=== PATIENT | male | born 1965 | race Caucasian/White ===

== ENCOUNTER → 2017-08-05 14:46 | Outpatient (CLI) | payer BC, SELFPAY ==
[2017-08-05 18:03] LABS: Anion Gap 14.5 mEq/L (5-15); Blood Urea Nitrogen 24 mg/dL (7-18); Carbon Dioxide 29 mmol/L (21.0-32.0); Chloride 102 mmol/L (98-107); Chol/HDL Ratio 3.6 (1-3.5); Cholesterol 160 mg/dL (140-200); Creatinine,Serum 1.18 mg/dL (0.70-1.30); Estimated Glomerular Filt Rate 65 ml/min (>60); GFR (African American) 78 ML/MIN (>60); Glucose 85 mg/dL (74-106); HDL Cholesterol 45 mg/dL (27-67); LDL Cholesterol 54 mg/dL (0-130); Potassium 4.5 mmoL/L (3.5-5.1); Sodium 141 mmol/L (136-145); Thyroid Stimulating Hormone 1.19 uIU/ml (0.358-3.740); Triglycerides 305 mg/dL (30-200); VLDL Cholesterol 61 mg/dL (0-40)
== END ==
PROVIDERS: Visit Provider Emergency Medicine
DX: E66.9 Obesity, unspecified (principal)
CPT/HCPCS: 80048; 80061; 84439; 84443

== ENCOUNTER 2019-01-08 01:58 | Observation (INO) ==
--- NOTE | 2019-01-08 02:16 | Emergency Department Note ---
ED Disposition Clinical Impression: Precordial chest pain Disposition: Admitted as Observation Condition on Discharge: Good - Critical Care Critical Care Time: No Attestation: On , the high probability of a clinically significant, sudden or life threatening deterioration of the following system(s) required my full and direct attention, intervention and personal management. The time I documented below is in addition to time spent performing reported procedures but includes the following listed in this critical care notation. Medical Decision Making - Alejandro Inquiry Pt receiving controlled substance: No Vital Signs: 01/08/19 02:12 01/08/19 02:30 01/08/19 02:35 Temperature 97.8 F Temperature Source Oral Pulse Rate [Right] 62 75 76 Respiratory Rate 20 20 20 Blood Pressure [Right Arm] 176/87 H 143/83 H 144/77 H Blood Pressure Mean [Right Arm] 116 103 99 Blood Pressure Source [Right Arm] Automatic Cuff Blood Pressure Position [Right Arm] Sitting 02 Sat by Pulse Oximetry 95 91 L 90 L Oxygen Delivery Method Room Air Room Air Room Air Oxygen Flow Rate (LPM) 01/08/19 03:00 Temperature Temperature Source Pulse Rate [Right] Respiratory Rate Blood Pressure [Right Arm] Blood Pressure Mean [Right Arm] Blood Pressure Source [Right Arm] Blood Pressure Position [Right Arm] 02 Sat by Pulse Oximetry 95 Oxygen Delivery Method Nasal Cannula Oxygen Flow Rate (LPM) 2 - Lab Data Lab Results 01/08/19 02:15: Sodium 139, Potassium 4.0, Chloride 103, Carbon Dioxide 26, Anion Gap 14.0, BUN 27 H, Creatinine 1.11, Estimated Creat Clear 69, Estimated GFR 69, Est GFR ( Amer) 84, Glucose 105, Calcium 9.3, Troponin I < 0.02 01/08/19 02:15: WBC 8.6, RBC 5.36, Hgb 16.7, Hct 50.2, MCV 93.6, MCH 31.2, MCHC 33.3, RDW 13.0, Plt Count 261, MPV 8.1, Neut % (Auto) 61.6, Lymph % (Auto) 26.0, G[place] % (Auto) 8.6, Eos % (Auto) 3.4, Baso % (Auto) 0.4, Neut # (Auto) 5.3, Lymph # (Auto) 2.3, Gaston # (Auto) 0.7, Eos # (Auto) 0.3, Baso # (Auto) 0.0 01/08/19 02:15: D-Dimer < 100 01/08/19 02:15: B-Natriuretic Peptide < 5 Result diagrams: 01/08/19 02:15 01/08/19 02:15 Orders (Tests/Meds): ED MEDICATIONS Generic Name Dose Route Start Last Admin Trade Name Freq PRN Reason Stop Dose Admin Nitroglycerin 0.4 mg 01/08/19 02:30 01/08/19 02:36 Nitrostat 0.4mg Sl Tablet SL 02/07/19 02:29 1 tab Q5MINP PRN Administration Chest Pain Pantoprazole Sodium 40 mg 01/08/19 09:00 Protonix 40mg Tablet PO 02/07/19 08:59 BID ELIEZER Discontinued Medications Generic Name Dose Route Start Last Admin Trade Name Freq PRN Reason Stop Dose Admin Aspirin 243 mg 01/08/19 02:29 01/08/19 02:15 Aspirin 81mg Chewable Tablet PO 01/08/19 02:30 243 mg ONCE ONE Administration ORDERS Category Date Time Status XR chest 2V Stat Exams 01/08/19 02:29 Taken - Radiology Data #1 Image(s): Chest Image Reviewed: Yes I reviewed the patient's radiology image Preliminary Findings: Normal/NAD poor inspiration - ECG Data Tracing #1 EKG interpreted by Juan Coles MD: Rhythm: sinus bradycardia Rate: 59 [place]: normal Ectopy: none Conduction: normal ST Segment Changes: none T Wave Changes: none Q Waves: none No evidence of acute ischemia or injury - Physician Consults Physician Consulted: Eleazar Time: 03:42 Reason -: Cardiology Eval/Care Comment/Response: Recommends admit for observation, stress test this morning. Start PPI. Additional Consult: Edward Time: 04:05 Reason -: Admission Comment/Response: Agrees to admit the patient to the hospital. We discussed the patient's clinical information, including history, exam, laboratory and radiology results and ED course. Per hospital procedure, I will write temporary bridge inpatient orders on the patient. Specific orders requested by the admitting physician: Per cardiology - Reevaluation(s) Time: 03:30 Reevaluation #1: Symptom-free after nitroglycerin Medical Decision Narrative: [facility] 2017: ANGIOGRAPHIC RESULTS: 1. The left main artery normal 2. The left anterior descending artery normal 3. The circumflex artery normal 4. The right coronary artery dominant normal 5. The PÉREZ ventriculogram reveals 65% 6. The left ventricular end-diastolic pressure moderate to severely elevated at 25 to 30 mmHg IMPRESSION: 1. Normal coronary arteries. 2. Normal ejection fraction 3. Moderate to severely elevated LVEDP consistent with diastolic dysfunction PLAN: 1. Risk factor modification 2. Patient needs significant diuresis as his symptoms likely stemming from diastolic heart failure 3. Sleep study <Electronically signed by Shon Bush MD in [place]> 02/21/17 1157 DORIE / PS AT 0940 AT 0956 Stress test 2017: FINDINGS: Ejection fraction is calculated to be 58% with normal wall motion Stress images reveal decreased activity in the apex and inferior wall. Rest images reveal slightly worsening activity in the inferior wall with slight improvement in the apex IMPRESSION: This is an abnormal stress test suggesting previous nontransmural myocardial infarction involving the apex with partial reversible ischemia as well as reverse redistribution in the inferior wall. <Electronically signed by Shon Bush MD in [place]> 02/15/17 1419 DORIE / PS AT 1024 AT 1415 ECHO 2017: CONCLUSION: 1. Normal left ventricular size, mild concentric left ventricular hypertrophy, visually estimated ejection fraction 55% with no obvious regional wall motion abnormality ,grade 1 diastolic dysfunction seen with borderline left atrial pressure by tissue Doppler. 2. Mild mitral and tricuspid regurgitation. 3. No significant pericardial effusion noted. <Electronically signed by NILSON HOUSTON MD in [place]> 08/25/16 1126 EMELYN / PS AT 0942 AT 1121 General Adult HPI - General Stated complaint: Back Pain;SOA Time Seen by Provider: 01/08/19 02:00 - History of Present Illness HPI narrative: States that while lying in bed about 1 AM he developed difficulty breathing, associated with heaviness in his chest, left shoulder and left arm discomfort. Denies diaphoresis or nausea. He has taken aspirin for tonight. States he has had this before, states he has had stress test and heart cath about a year ago. Says he has gotten this "every once in a great while" since then. also states that he has very poor exercise tolerance. He will even vomit if he exerts himself. He has hypertension and takes losartan/HCTZ. Non-smoker. Denies diabetes or hyperlipidemia. His primary care provider was Dr. Hernadez's office, but he says he will not go back there because he never gets to see the doctor, always sees a nurse practitioner, and was prescribed an antidepressant that caused him to gain 30 pounds of weight without being told that weight gain was a side effect. He stopped that medication a month ago. Family history positive for father who had emphysema and heart problems, but "he smoked like a [id number] Found! train". - Related Data Previous Rx's Medication Instructions Recorded losartan 100 1 tab PO QDAY #90 tab 10/16/18 mg-hydrochlorothiazide 25 mg tablet Allergies Allergy/AdvReac Type Severity Reaction Status Date / Time No Known Allergies Allergy Verified 10/16/18 15:05 [facility] History - Hepatitis A Screen Attestation statement:: This patient has been screened for Hepatitis A risk factors. I have reviewed the patient's past medical history: Yes Medical History: Reports:: Gastroesophageal Reflux Disease(GERD), Hypertension Denies:: Diabetes Mellitus Type 1, Diabetes Mellitus Type 2 Comment: depression Laterality Cases: Bilateral: Arthroscopy Knee Other Surgeries: Yes: Hernia Repair, Other Amputation: No Fractures: No - Social History Smoking Status: Never smoker Alcohol Intake: current Alcohol Intake Frequency:: holidays/special occasions only Substance Use Type: denies use Occupational Status: employed Housing: house Household Members: family Family Hx:: Coronary Artery Disease, Heart Attack ROS Obtained: Yes All systems reviewed & no additional complaints - Cardiovascular Cardiovascular: Reports chest pain, Denies diaphoresis - Respiratory Respiratory: Yes dyspnea - Gastrointestinal Gastrointestingal: Denies: abdominal pain, nausea, vomiting Physical Exam - General General appearance: alert - Head Head exam: atraumatic, normocephalic - Eye Eye exam: Present: normal appearance, EOMI - ENT ENT exam: Present: mucous membranes moist - Neck Neck exam: Present: normal inspection, trachea midline - Chest Chest inspection: Present: normal inspection, symmetric chest wall rise - Respiratory Respiratory exam: Present: normal lung sounds bilaterally. Absent: respiratory distress - Cardiovascular Cardiovascular exam: Present: regular rate, normal rhythm, normal heart sounds - Abdominal Exam Abdominal exam: Present: soft, normal bowel sounds. Absent: distention, tenderness - Extremities Exam Extremities exam: Present: normal inspection - Neurological Exam Neurological exam: Present: alert, oriented X3 - Psychiatric Psychiatric exam: Present: normal affect, normal mood - Skin Skin exam: Present: pallor
[2019-01-08 02:48] LABS: Blood Urea Nitrogen 27 mg/dL (7-18); Calcium 9.3 mg/dL (8.5-10.1); Carbon Dioxide 26 mmol/L (21.0-32.0); Chloride 103 mmol/L (98-107); Glucose 105 mg/dL (74-106); Sodium 139 mmol/L (136-145)
[2019-01-08 02:56] LABS: Basophils % 0.4 % (0.1-2.0); Eosinophils # 0.3 K/mm3 (0.0-0.4); Eosinophils % 3.4 % (0.1-12.0); Hematocrit 50.2 % (42.0-52.0); Hemoglobin 16.7 g/dL (14.1-18.0); Lymphocytes # 2.3 K/mm3 (0.7-4.5); Mean Corpuscular HGB Conc 33.3 g/dL (31.8-35.4); Mean Corpuscular Volume 93.6 fl (80-94); Mean Platelet Volume 8.1 fl (7.4-10.4); Monocytes # 0.7 K/mm3 (0.1-1.0); Monocytes % 8.6 % (1.7-9.3); Neutrophils # 5.3 K/mm3 (1.8-7.8); Neutrophils % 61.6 % (37.0-80.0); Platelet Count 261 K/mm3 (142-424); Red Blood Count 5.36 M/mm3 (4.60-6.20); White Blood Count 8.6 K/mm3 (4.8-10.8)
--- NOTE | 2019-01-08 07:35 | Pharmacy Consult Notes ---
[facility] Pharmacy VTE Monitoring - Patient Demographics Admission date: 01/08/19 Report Date: 01/08/19 Time: 07:35 Allergies/Adverse Reactions: Patient Allergies No Known Allergies Allergy (Verified 10/16/18 15:05) Height: 1.83 m Weight: 120.202 kg Patient Problems: Current Active Problems Precordial chest pain (Acute) - VTE Risk Labs: VTE Related Lab Results Hgb 16.7 g/dL (14.1-18.0) 01/08/19 02:15 Hct 50.2 % (42.0-52.0) 01/08/19 02:15 Plt Count 261 K/mm3 (142-424) 01/08/19 02:15 BUN 27 mg/dL (7-18) H 01/08/19 02:15 Creatinine 1.11 mg/dL (0.70-1.30) 01/08/19 02:15 Estimated Creat Clear 69 mL/min (50-200) 01/08/19 02:15 VTE Score: 6 VTE Risk Level: Moderate Risk - Prophylaxis VTE Prophylaxis Ordered?: Yes Types of VTE Prophylaxis: TEDS Knee High Location of Applied Device: Bilateral Lower Extremeties - VTE Diagnosis Confirmed Treatment or plan recommended: Continue Current Treatment
--- NOTE | 2019-01-08 08:25 | History & Physical Report ---
*Admission Date: 01/08/19 <Lilia Salazar - 01/08/19 08:25> *Chief complaint: Shortness of breath <SalazarAgathaLilia 01/08/19 08:25> *History of present illness: Mr. Williamson is a 53-year-old male with a history of hypertension and anxiety who presented to [facility] emergency room after awakening with severe shortness of breath. He states after awakening he sat on the side of the bed and it was not relieved. He denies specific chest pain but states he had left shoulder discomfort. He also denies having nausea, vomiting, palpitations, and diaphoresis. He states he has some leg edema at times. In the emergency room he received nitroglycerin x3+ Protonix after which his shortness of breath improved. Dr. Bush was contacted and recommended admission with a stress test. He is usually a patient of Dr. Hernadez'juan. After admission troponin has been normal x2. He states he has been sitting in a chair throughout the night after admission with no further chest or arm/shoulder pain. His breathing has returned to normal. Patient did have a cardiac cath in 2017 with normal coronary arteries and with severe elevation of left ventricular and diastolic pressure dictating diastolic dysfunction. Diuresis was recommended. He also relates that he has gained 30 pounds in the last several months and blames this on BuSpar which was prescribed for anxiety. He thus has not taken this for several weeks. He does not smoke but drinks 2-3 beers daily. <MarieLilia - 01/08/19 08:45> [facility] History Medical History: Reports:: Anxiety, Gastroesophageal Reflux Disease(GERD), Hypertension Denies:: Arrhythmia, BPH, Cancer, Coronary Artery Disease, Diabetes Mellitus Type 1, Diabetes Mellitus Type 2, Home Oxygen, Internal Pacemaker, Lung Disease, MRSA, Myocardial Infarction, Palpitations, Seizures <Lilia Salazar 01/08/19 08:39> *Have you ever received a pneumonia vaccine?: No <Lilia Salazar 01/08/19 08:25> *Have you received a flu vaccine this season?: Yes <Lilia Salazar 01/08/19 08:25> Other Medical History: Reports: Arthritis (Left ankle) <Lilia Salazar 01/08/19 08:39> Laterality Cases: Bilateral: Arthroscopy Knee <Lilia Salazar 01/08/19 08:25> Other Surgeries: Yes: Cardiac Catheterization, Hernia Repair, Other. No: Pacemaker <MarieLilia 01/08/19 08:25> Amputation: No <MarieLilia 01/08/19 08:25> Fractures: No <Lilia Salazar 01/08/19 08:25> - *Social History Educational Level: Completed High School <Salazar,Lilia 01/08/19 08:25> Smoking Status: Never smoker <MarieLilia 01/08/19 08:25> Alcohol Intake: current <MarieLilia 01/08/19 08:25> Alcohol Intake Frequency:: 3 or more drinks per day <Salazar,Lilia Cara 01/08/19 08:25> Substance Use Type: denies use <MarieLilia 01/08/19 08:25> *Occupational Status:: employed <SalazarLilia 01/08/19 08:25> Housing: house <MarieLilia 01/08/19 08:25> Household Members: family <MarieLilia 01/08/19 08:25> *Travel in the last 8 weeks: None <SalazarLilia 01/08/19 08:25> Family Hx:: Coronary Artery Disease, Heart Attack <SalazarLilia 01/08/19 08:25> Review of Systems - Constitutional Reports headache(s) <Salazar,Lilia 01/08/19 08:39> - Eyes Denies change in vision <Lilia Salazar 01/08/19 08:39> - ENT Reports headache(s), Reports nasal congestion, Reports sinus pain, Reports sinus pressure, Denies ear pain, Denies sore throat <Lilia Salazar 01/08/19 08:39> - *Cardiovascular Reports shortness of breath, Reports leg swelling, Reports shortness of breath when lying down, Denies chest pain, Denies excessive sweating, Denies irregular heart rhythm <Lilia Salazar 01/08/19 08:39> - *Respiratory Reports shortness of breath, Denies chest congestion, Denies cough, Denies coughing up blood <Lilia Salazar 01/08/19 08:39> - *Gastrointestinal Reports bloating, Reports constipation, Reports heartburn, Denies abdominal pain, Denies vomiting blood <Lilia Salazar - 01/08/19 08:39> - *Genitourinary Denies difficulty urinating <Lilia Salazar - 01/08/19 08:39> - *Musculoskeletal Reports joint pain, Denies abnormal walking <Lilia Salazar 01/08/19 08:39> - *Neurologic Reports headache(s), Denies seizure-like activity, Denies dizziness <Lilia Salazar - 01/08/19 08:39> Meds Home Medications Medication Instructions Recorded Confirmed Type losartan 100 1 tab PO QDAY #90 tab 10/16/18 01/08/19 Rx mg-hydrochlorothiazide 25 mg tablet Metoprolol Succinate 25 mg PO DAILY 30 Days #30 01/08/19 Rx tab.er.24h Nitroglycerin [Nitrostat 0.4mg SL 0.4 mg SL Q5MINP PRN 30 Days #30 01/08/19 Rx Tablet] tab.subl <EdwardYolanda - 01/08/19 10:35> Allergies Allergy/AdvReac Type Severity Reaction Status Date / Time No Known Allergies Allergy Verified 10/16/18 15:05 <Yolanda Leon - 01/08/19 10:35> Exam Vital signs and Labs for Last 24 Hours: Temp Pulse Resp BP Pulse Ox 99.0 F 69 18 147/78 H 99 01/08/19 08:00 01/08/19 08:00 01/08/19 08:00 01/08/19 08:00 01/08/19 08:00 Laboratory Results - last 24 hr 01/08/19 02:15: Sodium 139, Potassium 4.0, Chloride 103, Carbon Dioxide 26, Anion Gap 14.0, BUN 27 H, Creatinine 1.11, Estimated Creat Clear 69, Estimated GFR 69, Est GFR ( Amer) 84, Glucose 105, Calcium 9.3, Troponin I < 0.02 01/08/19 02:15: WBC 8.6, RBC 5.36, Hgb 16.7, Hct 50.2, MCV 93.6, MCH 31.2, MCHC 33.3, RDW 13.0, Plt Count 261, MPV 8.1, Neut % (Auto) 61.6, Lymph % (Auto) 26.0, Stewart % (Auto) 8.6, Eos % (Auto) 3.4, Baso % (Auto) 0.4, Neut # (Auto) 5.3, Lymph # (Auto) 2.3, Stewart # (Auto) 0.7, Eos # (Auto) 0.3, Baso # (Auto) 0.0 01/08/19 02:15: D-Dimer < 100 01/08/19 02:15: B-Natriuretic Peptide < 5 01/08/19 07:23: Troponin I < 0.02 <Yolanda Leon - 01/08/19 10:35> Temp Pulse Resp BP Pulse Ox 98.0 F 62 17 151/80 H 99 01/08/19 04:56 01/08/19 05:12 01/08/19 05:12 01/08/19 04:56 01/08/19 05:12 Laboratory Results - last 24 hr 01/08/19 02:15: Sodium 139, Potassium 4.0, Chloride 103, Carbon Dioxide 26, Anion Gap 14.0, BUN 27 H, Creatinine 1.11, Estimated Creat Clear 69, Estimated GFR 69, Est GFR ( Amer) 84, Glucose 105, Calcium 9.3, Troponin I < 0.02 01/08/19 02:15: WBC 8.6, RBC 5.36, Hgb 16.7, Hct 50.2, MCV 93.6, MCH 31.2, MCHC 33.3, RDW 13.0, Plt Count 261, MPV 8.1, Neut % (Auto) 61.6, Lymph % (Auto) 26.0, Stewart % (Auto) 8.6, Eos % (Auto) 3.4, Baso % (Auto) 0.4, Neut # (Auto) 5.3, Lymph # (Auto) 2.3, Stewart # (Auto) 0.7, Eos # (Auto) 0.3, Baso # (Auto) 0.0 01/08/19 02:15: D-Dimer < 100 01/08/19 02:15: B-Natriuretic Peptide < 5 01/08/19 07:23: Troponin I < 0.02 <Lilia Salazar - 01/08/19 08:25> I & O for Last 24 hours: Intake & Output 01/05/19 01/06/19 01/07/19 01/08/19 12:59 12:59 11:59 11:59 Intake Total 360 / 360 Balance 360 / 360 Weight 265 lb <Yolanda Leon - 01/08/19 10:35> Intake & Output 01/05/19 01/06/19 01/07/19 01/08/19 12:59 12:59 11:59 11:59 Weight 265 lb <Lilia Salazar - 01/08/19 08:25> Radiology Reports for the Last 24 Hours: 01/08/2019 chest x-ray IMPRESSION: No acute findings. <Salazar,Lilia Cara 01/08/19 08:39> - Constitutional no acute distress <Salazar,Lilia 01/08/19 08:39> Comments: Appears comfortable sitting in comfort chair at bedside. <Salazar,Lilia 01/08/19 08:39> - *Routine HEENT Exam Head: Present: normocephalic, atraumatic <MarieLilia 01/08/19 08:39> Eye: Present: PERRL. Absent: conjunctival icterus, scleral injection, conjunctivae pink <SalazarLilia 01/08/19 08:39> ENT: Present: mucous membranes moist, oropharynx clear <Salazar,Lilia 01/08/19 08:39> - *Routine Neck Exam Present: supple. Absent: carotid bruit, lymphadenopathy, thyromegaly <MarieLilia Cara 01/08/19 08:39> - *Routine Respiratory Exam Present: CTA bilaterally (Anteriorly and posteriorly) <SalazarLilia 01/08/19 08:39> - *Routine Cardiovascular Exam Present: RRR <SalazarLilia 01/08/19 08:39> - *Routine Abdominal Exam Present: soft, normoactive bowel sounds. Absent: tenderness, distended, guarding, organomegaly <MarieLilia - 01/08/19 08:39> - *Routine Extremities Exam Absent: edema, calf tenderness <MarieLilia - 01/08/19 08:39> - *Routine Neurological Exam Present: alert, oriented X3 <Lilia Salazar 01/08/19 08:39> Assessment and Plan (1) Diastolic dysfunction Current visit: Yes Status: Chronic Category: Medical Code(s): I51.89 - Other ill-defined heart diseases (2) Anxiety Current visit: Yes Status: Chronic Category: Medical Code(s): F41.9 - Anxiety disorder, unspecified (3) Weight gain Current visit: Yes Status: Acute Category: Medical Code(s): R63.5 - Abnormal weight gain (4) Alcohol use Current visit: Yes Status: Chronic Category: Social Hx Code(s): Z72.89 - Other problems related to lifestyle (5) Arthritis Current visit: Yes Status: Chronic Category: Medical Code(s): M19.90 - Unspecified osteoarthritis, unspecified site (6) Hypertensive heart disease Current visit: Yes Status: Chronic Category: Medical Code(s): I11.9 - Hypertensive heart disease without heart failure (7) Obesity Current visit: Yes Status: Chronic Category: Medical Code(s): E66.9 - Obesity, unspecified <Lilia Salazar - 01/08/19 08:41> (1) Diastolic dysfunction Current visit: Yes Status: Chronic Category: Medical Code(s): I51.89 - Other ill-defined heart diseases (2) Anxiety Current visit: Yes Status: Chronic Category: Medical Code(s): F41.9 - Anxiety disorder, unspecified (3) Weight gain Current visit: Yes Status: Acute Category: Medical Code(s): R63.5 - Abnormal weight gain (4) Alcohol use Current visit: Yes Status: Chronic Category: Social Hx Code(s): Z72.89 - Other problems related to lifestyle (5) Arthritis Current visit: Yes Status: Chronic Category: Medical Code(s): M19.90 - Unspecified osteoarthritis, unspecified site (6) Hypertensive heart disease Current visit: Yes Status: Chronic Category: Medical Code(s): I11.9 - Hypertensive heart disease without heart failure (7) Obesity Current visit: Yes Status: Chronic Category: Medical Code(s): E66.9 - Obesity, unspecified <Yolanda Leon - 01/08/19 10:35> - Assessment and plan all Dx Assessment and Plan for all problems:: d/c today per cardiology with appropriate recommended medications <Yolanda Leon - 01/08/19 10:35> Patient has been seen by cardiology and will receive low-dose of Lasix this a.m. We will continue with his losartan/hydrochlorothiazide. Patient does take some NSAID for his arthritis pain. He was cautioned to diminish this as well as his salt intake. Diet was discussed with the patient for reduced caloric intake. Recommended to decrease/stop pop and beer. <Lilia Salazar - 01/08/19 08:45>
--- NOTE | 2019-01-08 08:27 | Consult Report ---
History of Present Illness Consult date: 01/08/19 Consult reason: chest pain Chief complaint: chest pain, SOA Additional Medical History:: 1. HTN/HHD A. Echo, 08/2016,1. Normal left ventricular size, mild concentric left ventricular hypertrophy, visually estimated ejection fraction 55% with no obvious regional wall motion abnormality ,grade 1 diastolic dysfunction seen with borderline left atrial pressure by tissue Doppler. 2. Mild mitral and tricuspid regurgitation. 3. No significant pericardial effusion noted 2. Hyperlipidemia 3. obesity 4. Anxiety 5. Cardiac cath, 02/2017 A. 1. Normal coronary arteries. 2. Normal ejection fraction 3. Moderate to severely elevated LVEDP at 25-30 mm Hg consistent with diastolic dysfunction History of present illness: 53-year-old white male admitted for episode of chest discomfort and shortness of breath that woke him from sleep. Patient relates intermittent episodes approximately once a month over the last several months. Upon sitting up symptoms did improve but were still worrisome. Patient came to the ER for further evaluation. He was given a total of 3 nitroglycerin sublingual with improvement in symptoms but developed a headache. Patient relates drinking about 3 beers per day and apparently drank a pint of sangria along with eating a large portion of ham over the weekend. He does relate taking naproxen twice a day for left ankle discomfort. He has gained approximately 30 pounds or more over the last couple of months which she relates to anxiety medication. He discontinued the medication approximately 1 month ago. Patient underwent cardiac catheterization in February 2017 with normal coronary arteries and evidence of hypertensive heart disease with left ventricular end- diastolic pressure elevated at 25 to 30 mmHg. Patient was admitted with serial troponins returning at less than 0.022. EKG is sinus with no acute ST segment changes. Patient's chest x-ray was unremarkable with a BNP of less than 5. Cardiology consulted for evaluation recommendations. [facility] History Medical History: Reports:: Gastroesophageal Reflux Disease(GERD), Hypertension Denies:: Cancer, Diabetes Mellitus Type 1, Diabetes Mellitus Type 2, Home Oxygen, Internal Pacemaker, MRSA *Have you ever received a pneumonia vaccine?: No *Have you received a flu vaccine this season?: Yes Laterality Cases: Bilateral: Arthroscopy Knee Other Surgeries: Yes: Cardiac Catheterization, Hernia Repair, Other. No: Pacemaker Amputation: No Fractures: No - *Social History Educational Level: Completed High School Smoking Status: Never smoker Alcohol Intake: current Alcohol Intake Frequency:: 3 or more drinks per day Substance Use Type: denies use *Occupational Status:: employed Housing: house Household Members: family *Travel in the last 8 weeks: None Family Hx:: Coronary Artery Disease, Heart Attack Meds Home Medications Medication Instructions Recorded Confirmed Type losartan 100 1 tab PO QDAY #90 tab 10/16/18 01/08/19 Rx mg-hydrochlorothiazide 25 mg tablet Allergies Allergy/AdvReac Type Severity Reaction Status Date / Time No Known Allergies Allergy Verified 10/16/18 15:05 Review of Systems - Review of Systems Review of systems:: pertinent systems reviewed and negative unless documented below - *Cardiovascular Reports chest pain, Reports shortness of breath - *Respiratory Reports shortness of breath with activity - *Gastrointestinal Denies nausea, Denies vomiting - *Genitourinary Denies blood in urine - *Musculoskeletal Reports joint pain, Denies back pain - *Neurologic Denies dizziness, Denies fainting, Denies tingling Exam Vital signs and Labs for Last 24 Hours: Temp Pulse Resp BP Pulse Ox 98.0 F 62 17 151/80 H 99 01/08/19 04:56 01/08/19 05:12 01/08/19 05:12 01/08/19 04:56 01/08/19 05:12 Laboratory Results - last 24 hr 01/08/19 02:15: Sodium 139, Potassium 4.0, Chloride 103, Carbon Dioxide 26, Anion Gap 14.0, BUN 27 H, Creatinine 1.11, Estimated Creat Clear 69, Estimated GFR 69, Est GFR ( Amer) 84, Glucose 105, Calcium 9.3, Troponin I < 0.02 01/08/19 02:15: WBC 8.6, RBC 5.36, Hgb 16.7, Hct 50.2, MCV 93.6, MCH 31.2, MCHC 33.3, RDW 13.0, Plt Count 261, MPV 8.1, Neut % (Auto) 61.6, Lymph % (Auto) 26.0, [place] % (Auto) 8.6, Eos % (Auto) 3.4, Baso % (Auto) 0.4, Neut # (Auto) 5.3, Lymph # (Auto) 2.3, [place] # (Auto) 0.7, Eos # (Auto) 0.3, Baso # (Auto) 0.0 01/08/19 02:15: D-Dimer < 100 01/08/19 02:15: B-Natriuretic Peptide < 5 01/08/19 07:23: Troponin I < 0.02 I & O for Last 24 hours: Intake & Output 01/05/19 01/06/19 01/07/19 01/08/19 12:59 12:59 11:59 11:59 Weight 265 lb - *Routine HEENT Exam Head: Present: normocephalic Eye: Present: EOMI, PERRL ENT: Present: mucous membranes moist - *Routine Neck Exam Present: supple. Absent: JVD, carotid bruit - *Routine Respiratory Exam Present: CTA bilaterally. Absent: accessory muscle use, rales, rhonchi, wheezes - *Routine Cardiovascular Exam Present: RRR. Absent: murmur, gallop, rubs - *Routine Abdominal Exam Present: soft. Absent: tenderness, distended, guarding - *Routine Extremities Exam Present: edema. Absent: calf tenderness - *Routine Neurological Exam Present: alert, oriented X3, moving all extremities Assessment and Plan (1) Precordial chest pain Current visit: Yes Status: Acute Category: Medical Code(s): R07.2 - Precordial pain (2) Hypertensive heart disease Current visit: Yes Status: Acute Category: Medical Code(s): I11.9 - Hypertensive heart disease without heart failure (3) Obesity Current visit: Yes Status: Acute Category: Medical Code(s): E66.9 - Obesity, unspecified (4) Alcohol use Current visit: Yes Status: Acute Category: Social Hx Code(s): Z72.89 - Other problems related to lifestyle (5) Arthritis Current visit: Yes Status: Acute Category: Medical Code(s): M19.90 - Unspecified osteoarthritis, unspecified site - Assessment and plan all Dx Assessment and Plan for all problems:: 1. Precordial chest pain and shortness of breath felt related to exacerbation of his hypertensive heart disease due to increased salt intake and NSAID use. Discussed dietary changes as well as limiting his use of NSAIDs. In light of the patient's normal troponins, EKG and recent cardiac cath showed normal coronary arteries would not recommend any further testing at this time. 2. One-time dose of Lasix this a.m. due to his diastolic dysfunction and hypertensive heart disease. 3. Continue his losartan/HCTZ at 100/25 mg daily. 4. Recommend adding low-dose metoprolol succinate XL 25 mg daily for blood pressure control. 5. Okay for discharge from cardiology standpoint with follow-up in our office in 2 weeks.
--- NOTE | 2019-01-08 16:32 | Discharge Summary ---
General - General Admission date:: 01/08/19 Discharge date: 01/08/19 HPI HPI: Mr. Williamson is a 53-year-old male with a history of hypertension and anxiety who presented to [facility] emergency room after awakening with severe shortness of breath. He stated after awakening he sat on the side of the bed and it was not relieved. He denied specific chest pain but stated he had left shoulder discomfort. He also denied having nausea, vomiting, palpitations, and diaphoresis. He stated he had some leg edema at times. In the emergency room he received nitroglycerin x3+ Protonix after which his shortness of breath improved. Dr. Bush was contacted and recommended admission with a stress test. He was usually a patient of Dr. Hernadez's. After admission troponin was normal x2. He stated he had been sitting in a chair throughout the night after admission with no further chest or arm/shoulder pain. His breathing had returned to normal. Patient was noted to have had a cardiac cath in 2017 with normal coronary arteries and with severe elevation of left ventricular end diastolic pressure noting diastolic dysfunction. Diuresis was recommended. Patient also related that he had gained 30 pounds in the past several months and blamed this on new anxiety med, BuSpar. He thus had not been taking this for several weeks. He does not smoke but drinks 2-3 beers daily. Hospital Course Hospital Course: Patient was seen by cardiology with the following: Assessment and Plan for all problems:: 1. Precordial chest pain and shortness of breath felt related to exacerbation of his hypertensive heart disease due to increased salt intake and NSAID use. Discussed dietary changes as well as limiting his use of NSAIDs. In light of the patient's normal troponins, EKG and recent cardiac cath showing normal coronary arteries would not recommend any further testing at this time. 2. One-time dose of Lasix this a.m. due to his diastolic dysfunction and hyp ertensive heart disease. 3. Continue his losartan/HCTZ at 100/25 mg daily. 4. Recommend adding low-dose metoprolol succinate XL 25 mg daily for blood pressure control. 5. Okay for discharge from cardiology standpoint with follow-up in our office in 2 weeks. AM after admission patient denied chest pain and shortness of breath. He was able to eat without problems. He ambulated in the room without difficulty. He received 40 of Lasix and started on Metoprolol. He was discharged home. Discharged home in stable and satisfactory condition. He was to follow-up with Dr. Leon in the office of [facility] as well as with Dr. Bush, cardiology. Objective Vital signs: Temp Pulse Resp BP Pulse Ox 99.0 F 69 18 147/78 H 99 01/08/19 08:00 01/08/19 08:00 01/08/19 08:00 01/08/19 08:00 01/08/19 08:00 Narrative: Exam Vital signs and Labs for Last 24 Hours: Temp Pulse Resp BP Pulse Ox 99.0 F 69 18 147/78 H 99 01/08/19 08:00 01/08/19 08:00 01/08/19 08:00 01/08/19 08:00 01/08/19 08:00 Laboratory Results - last 24 hr 01/08/19 02:15: Sodium 139, Potassium 4.0, Chloride 103, Carbon Dioxide 26, Anion Gap 14.0, BUN 27 H, Creatinine 1.11, Estimated Creat Clear 69, Estimated GFR 69, Est GFR ( Amer) 84, Glucose 105, Calcium 9.3, Troponin I < 0.02 01/08/19 02:15: WBC 8.6, RBC 5.36, Hgb 16.7, Hct 50.2, MCV 93.6, MCH 31.2, MCHC 33.3, RDW 13.0, Plt Count 261, MPV 8.1, Neut % (Auto) 61.6, Lymph % (Auto) 26.0, [place] % (Auto) 8.6, Eos % (Auto) 3.4, Baso % (Auto) 0.4, Neut # (Auto) 5.3, Lymph # (Auto) 2.3, [place] # (Auto) 0.7, Eos # (Auto) 0.3, Baso # (Auto) 0.0 01/08/19 02:15: D-Dimer < 100 01/08/19 02:15: B-Natriuretic Peptide < 5 01/08/19 07:23: Troponin I < 0.02 <Yolanda Leon - 01/08/19 10:35> Temp Pulse Resp BP Pulse Ox 98.0 F 62 17 151/80 H 99 01/08/19 04:56 01/08/19 05:12 01/08/19 05:12 01/08/19 04:56 01/08/19 05:12 Laboratory Results - last 24 hr 01/08/19 02:15: Sodium 139, Potassium 4.0, Chloride 103, Carbon Dioxide 26, Anion Gap 14.0, BUN 27 H, Creatinine 1.11, Estimated Creat Clear 69, Estimated GFR 69, Est GFR ( Amer) 84, Glucose 105, Calcium 9.3, Troponin I < 0.02 01/08/19 02:15: WBC 8.6, RBC 5.36, Hgb 16.7, Hct 50.2, MCV 93.6, MCH 31.2, MCHC 33.3, RDW 13.0, Plt Count 261, MPV 8.1, Neut % (Auto) 61.6, Lymph % (Auto) 26.0, [place] % (Auto) 8.6, Eos % (Auto) 3.4, Baso % (Auto) 0.4, Neut # (Auto) 5.3, Lymph # (Auto) 2.3, [place] # (Auto) 0.7, Eos # (Auto) 0.3, Baso # (Auto) 0.0 01/08/19 02:15: D-Dimer < 100 01/08/19 02:15: B-Natriuretic Peptide < 5 01/08/19 07:23: Troponin I < 0.02 <Lilia Salazar - 01/08/19 08:25> I & O for Last 24 hours: Intake & Output 01/05/19 01/06/19 01/07/19 01/08/19 12:59 12:59 11:59 11:59 Intake Total 360 / 360 Balance 360 / 360 Weight 265 lb <Yolanda Leon - 01/08/19 10:35> Intake & Output 01/05/19 01/06/19 01/07/19 01/08/19 12:59 12:59 11:59 11:59 Weight 265 lb <Lilia Salazar - 01/08/19 08:25> Radiology Reports for the Last 24 Hours: 01/08/2019 chest x-ray IMPRESSION: No acute findings. <Lilia Salazar 01/08/19 08:39> - Constitutional no acute distress <Lilia Salazar 01/08/19 08:39> Comments: Appears comfortable sitting in comfort chair at bedside. <Lilia Salazar 01/08/19 08:39> - *Routine HEENT Exam Head: Present: normocephalic, atraumatic <Lilia Salazar 01/08/19 08:39> Eye: Present: PERRL. Absent: conjunctival icterus, scleral injection, conjunctivae pink [facility] 01/08/[facility] 08:39> ENT: Present: mucous membranes moist, oropharynx clear [facility] 01/08/19 08:39> - *Routine Neck Exam Present: supple. Absent: carotid bruit, lymphadenopathy, thyromegaly [facility] 01/08/19 08:39> - *Routine Respiratory Exam Present: CTA bilaterally (Anteriorly and posteriorly) <Lilia Salazar 01/08/19 08:39> - *Routine Cardiovascular Exam Present: RRR [facility] 08[facility]39> - *Routine Abdominal Exam Present: soft, normoactive bowel sounds. Absent: tenderness, distended, guarding, organomegaly <Lilia Salazar 01/08/19 08:39> - *Routine Extremities Exam Absent: edema, calf tenderness [facility] 01/08/19 08:39> - *Routine Neurological Exam Present: alert, oriented X3 [facility] 01/08/19 08:39> Results Labs on day of discharge: Labs from last 24 hours 01/08/19 01/08/19 01/08/19 10:10 07:23 02:15 WBC RBC Hgb Hct MCV MCH MCHC RDW Plt Count MPV Neut % (Auto) Lymph % (Auto) [place] % (Auto) Eos % (Auto) Baso % (Auto) Neut # (Auto) Lymph # (Auto) [place] # (Auto) Eos # (Auto) Baso # (Auto) D-Dimer Sodium Potassium Chloride Carbon Dioxide Anion Gap BUN Creatinine Estimated Creat Clear Estimated GFR Est GFR ( Amer) Glucose Calcium Troponin I < 0.02 < 0.02 B-Natriuretic Peptide < 5 01/08/19 01/08/19 01/08/19 02:15 02:15 02:15 WBC 8.6 RBC 5.36 Hgb 16.7 Hct 50.2 MCV 93.6 MCH 31.2 MCHC 33.3 RDW 13.0 Plt Count 261 MPV 8.1 Neut % (Auto) 61.6 Lymph % (Auto) 26.0 [place] % (Auto) 8.6 Eos % (Auto) 3.4 Baso % (Auto) 0.4 Neut # (Auto) 5.3 Lymph # (Auto) 2.3 [place] # (Auto) 0.7 Eos # (Auto) 0.3 Baso # (Auto) 0.0 D-Dimer < 100 Sodium 139 Potassium 4.0 Chloride 103 Carbon Dioxide 26 Anion Gap 14.0 BUN 27 H Creatinine 1.11 Estimated Creat Clear 69 Estimated GFR 69 Est GFR ( Amer) 84 Glucose 105 Calcium 9.3 Troponin I < 0.02 B-Natriuretic Peptide DS: Diagnosis - Discharge Diagnosis (1) Diastolic dysfunction Status: Chronic (2) Anxiety Status: Chronic (3) Weight gain Status: Acute (4) Alcohol use Status: Chronic (5) Arthritis Status: Chronic (6) Hypertensive heart disease Status: Chronic (7) Obesity Status: Chronic Discharge Plan - Patient Discharge Instructions ACTIVITY: Continue current activity DIET: cardiac Patient Instructions: Angina, DI for Angina, DI for Chest Pain - Follow up Plan Follow up with: Shon Bush MD [Staff Physician] - 01/23/19 1:20 pm Yolanda Leon MD [Staff Physician] - 01/17/19 9:15 am Unknown provider or service follow up:: 01/08/19 10:31 PCP in 1-2 days Disposition: Home, Self-Skilled Nursing Medications: Home Medications Medication Instructions Recorded Confirmed Type losartan 100 1 tab PO QDAY #90 tab 10/16/18 01/08/19 Rx mg-hydrochlorothiazide 25 mg tablet Metoprolol Succinate 25 mg PO DAILY 30 Days #30 01/08/19 Rx tab.er.24h Nitroglycerin [Nitrostat 0.4mg SL 0.4 mg SL Q5MINP PRN 30 Days #30 01/08/19 Rx Tablet] tab.subl Prescriptions/Medication Reconciliation: New Metoprolol Succinate 25 mg PO DAILY 30 Days #30 tab.er.24h Nitroglycerin [Nitrostat 0.4mg SL Tablet] 0.4 mg SL Q5MINP PRN 30 Days #30 tab.subl PRN Reason: Chest Pain Continued losartan 100 mg-hydrochlorothiazide 25 mg tablet 1 tab PO QDAY #90 tab - Problem Reconciliation Problems Reviewed?: Yes
--- NOTE | 2019-01-08 17:13 | Electrocardiograph Report ---
APPROVED REPORT Exam: Resting ECG HR:59 bpm ECG Measurements Heart Rate 59 AXES WY 176 P 25 QRSd 92 QRS 22 QT 400 T31 QTc 396 <Conclusion> Sinus bradycardia Otherwise normal ECG Electronically signed by : Francisco Javier Zhou, 01/08/2019 17:12:59
== END 2019-01-08 11:27 | disposition home or self-care (01) ==
LOC: 2ND 01:58 → ER 01:58 → 2ND 04:34
PROVIDERS: ADMIT Emergency Medicine; ATTEND Emergency Medicine
CPT/HCPCS: 36415; 71020; 71046; 80048; 83880; 84484; 85025; 85378; 93005; 99285; G0378

== ENCOUNTER 2019-12-31 07:28 | Emergency (ER) | payer BC, SELFPAY ==
[2019-12-31] VITALS (7 sets, daily range): BP systolic 146–179; BP diastolic 75–91; PULSE 55–62; RESP 14–18; TEMP 36.6–36.7; O2SAT 94–96; BMI 34.5
--- NOTE | 2019-12-31 07:33 | ECG_ITS ---
APPROVED REPORT Exam: Resting ECG HR:67 bpm ECG Measurements Heart Rate 67 AXES NM 170 P 25 QRSd 94 QRS 45 QT 396 T 36 QTc 418 Conclusion Sinus rhythm with premature atrial complexes Otherwise normal ECG Electronically signed by : Kunal Bryant, 01/04/2020 11:31:40
--- NOTE | 2019-12-31 07:39 | XR_ITS ---
PROCEDURE: XR CHEST 2V CLINICAL HISTORY: pain Chest pain, cough, COMPARISON: No exams were available for comparison FINDINGS: The cardiomediastinal silhouette and pulmonary vascularity are within normal limits. The lungs are clear without infiltrates, suspicious nodules, or pleural effusions. There are bilateral lower lobe nodular opacities noted which may be due to nipple shadows may be confirmed with nipple markers. Degenerative changes thoracic spine IMPRESSION: No acute finding. Probable nipple shadows Dictated by: Xavier Jimenez MD 12/31/2019 08:49 Xavier Jimenez MD in [place] 12/31/2019 08:49
--- NOTE | 2019-12-31 07:51 | PC.NURSE ---
Pt returned from rad.
[2019-12-31 07:54] LABS: Basophils % 0.5 % (0.1-2.0); Eosinophils # 0.3 K/mm3 (0.0-0.4); Eosinophils % 4.2 % (0.1-12.0); Hematocrit 41.9 % (42.0-52.0); Hemoglobin 15.4 g/dL (14.1-18.0); Lymphocytes # 1.7 K/mm3 (0.7-4.5); Lymphocytes % 23.8 % (10-50); Mean Corpuscular HGB Conc 36.8 g/dL (31.8-35.4); Mean Corpuscular Hemoglobin 33.9 pg (27.0-31.2); Mean Corpuscular Volume 92.3 fl (80-94); Mean Platelet Volume 8.2 fl (7.4-10.4); Monocytes # 0.5 K/mm3 (0.1-1.0); Monocytes % 6.3 % (1.7-9.3); Neutrophils # 4.8 K/mm3 (1.8-7.8); Neutrophils % 65.2 % (37.0-80.0); Platelet Count 211 K/mm3 (142-424); Red Blood Count 4.54 M/mm3 (4.60-6.20); Red Cell Distribution Width 14.3 % (11.5-17.5); White Blood Count 7.3 K/mm3 (4.8-10.8)
[2019-12-31 07:56] LABS: Chloride 101 mmol/L (98-107)
[2019-12-31 07:57] LABS: Potassium 3.9 mmoL/L (3.5-5.1); Sodium 138 mmol/L (136-145)
[2019-12-31 07:58] LABS: Lipase 56 U/L (23-300)
[2019-12-31 07:59] LABS: Alanine Aminotransferase 28 U/L (12-78); Alkaline Phosphatase 77 U/L (38-126); Amylase 74 U/L (30-110); Anion Gap 10.9 mEq/L (5-15); Aspartate Amino Transferase 36 U/L (17-59); Bilirubin,Total 0.5 mg/dl (0.2-1.3); Blood Urea Nitrogen 21 mg/dl (9-20); Carbon Dioxide 30 mmol/L (22.0-30.0); Creatinine Clearance Estimated 137 mL/min (50-200); Estimated Glomerular Filt Rate 78 ml/min (>60); GFR (African American) 94 ML/MIN (>60)
[2019-12-31 08:00] LABS: Albumin Level 4.5 g/dl (3.5-5.0); Albumin/Globulin Ratio 1.4 (1.1-1.8); Globulin 3.3 g/dL (1.3-3.2); Glucose 107 mg/dl (74-100); Total Protein,Serum 7.8 g/dl (6.3-8.2)
--- NOTE | 2019-12-31 08:04 | [facility].EDGENADL ---
ED Disposition Clinical Impression: Dyspnea Qualifiers: Dyspnea type: shortness of breath Qualified Code(s): R06.02 - Shortness of breath Disposition: Home, Self-Care Condition on Discharge: Good Instructions: DI for Shortness of Breath Additional Instructions: You were seen on an emergency basis. It is very important that you follow up with your primary care provider and/or specialist as we discussed within 2 days. All labs and imaging were obtained and interpreted here to rule out life threatening emergencies, but your final results should be reviewed by your primary doctor at your follow up appointment. Please return to the emergency department if any of your symptoms worsen, or if they do not improve as we discussed. Referrals: Dave Hernadez MD [Primary Care Provider] - - Critical Care Critical Care Time: No Attestation: On 12/31/19, the high probability of a clinically significant, sudden or life threatening deterioration of the following system(s) required my full and direct attention, intervention and personal management. The time I documented below is in addition to time spent performing reported procedures but includes the following listed in this critical care notation. Medical Decision Making - Medical Records Medical records reviewed: Yes: I reviewed the patient's medical records. - Alejandro Inquiry Pt receiving controlled substance: No Vital Signs: 12/31/19 07:34 12/31/19 07:56 12/31/19 08:30 Temperature 97.8 F Temperature Source Oral Pulse Rate [Radial] 55 L 59 L 61 Respiratory Rate 18 Blood Pressure [Right Arm] 163/85 H 146/80 H 160/89 H Blood Pressure Mean [Right Arm] 111 102 112 Blood Pressure Source [Right Arm] Automatic Cuff Automatic Cuff Automatic Cuff Blood Pressure Position [Right Arm] Sitting Sitting Sitting 02 Sat by Pulse Oximetry 94 L 95 95 Oxygen Delivery Method Room Air Room Air Room Air 12/31/19 08:57 12/31/19 09:40 Temperature Temperature Source Pulse Rate [Radial] 60 62 Respiratory Rate 14 Blood Pressure [Right Arm] 158/78 H 179/91 H Blood Pressure Mean [Right Arm] 104 120 Blood Pressure Source [Right Arm] Automatic Cuff Automatic Cuff Blood Pressure Position [Right Arm] Sitting Sitting 02 Sat by Pulse Oximetry 94 L 95 Oxygen Delivery Method Room Air Room Air - Lab Data Lab Results 12/31/19 07:40: WBC 7.3, RBC 4.54 L, Hgb 15.4, Hct 41.9 L, MCV 92.3, MCH 33.9 H, MCHC 36.8 H, RDW 14.3, Plt Count 211, MPV 8.2, Neut % (Auto) 65.2, Lymph % (Auto) 23.8, [place] % (Auto) 6.3, Eos % (Auto) 4.2, Baso % (Auto) 0.5, Neut # (Auto) 4.8, Lymph # (Auto) 1.7, [place] # (Auto) 0.5, Eos # (Auto) 0.3, Baso # (Auto) 0.0 12/31/19 07:40: Troponin I < 0.01 12/31/19 07:40: Sodium 138, Potassium 3.9, Chloride 101, Carbon Dioxide 30, Anion Gap 10.9, BUN 21 H, Creatinine 1.00, Estimated Creat Clear 137, Estimated GFR 78, Est GFR ( Amer) 94, Glucose 107 H, Calcium 10.0, Total Bilirubin 0.5, AST 36, ALT 28, Alkaline Phosphatase 77, NT-Pro-B Natriuret Pep 26.0, Total Protein 7.8, Albumin 4.5, Globulin 3.3 H, Albumin/Globulin Ratio 1.4, Amylase 74 12/31/19 07:40: Lipase 56 12/31/19 09:45: Troponin I < 0.01 Result diagrams: 12/31/19 07:40 12/31/19 07:40 Orders (Tests/Meds): ORDERS Category Date Time Status Troponin I Q3H Lab 12/31/19 13:45 Ordered Medical Decision Narrative: 54-year-old male presenting with shortness of breath. Nontoxic, afebrile, hemodynamically stable, oxygenating well on room air. Chest x-ray negative for acute disease. White blood cell count, glucose, electrolytes, transaminases are normal/nonactionable. Initial and repeat troponin are negative and flat. EKG is nonischemic and without arrhythmia. this is not ACS, pneumonia, pneumothorax. No clinical suspicion for PE General Adult HPI - General Chief complaint: Shortness of Breath/Dyspnea Stated complaint: Tightness in chest Time Seen by Provider: 12/31/19 08:04 Mode of Arrival: Ambula
[2019-12-31 08:29] LABS: Troponin I < 0.01 ng/ml (0.00-0.034)
--- NOTE | 2019-12-31 09:40 | PC.NURSE ---
2nd troponin sent to lab
[2019-12-31 10:09] LABS: Troponin I < 0.01 ng/ml (0.00-0.034)
== END 2019-12-31 10:50 | disposition home or self-care (01) ==
PROVIDERS: Physician Assistant; Emergency Provider Student in an Organized Health Care Education/Training Program; PCP Emergency Medicine
DX: R07.89 Other chest pain (principal); R50.9 Fever, unspecified; I10 Essential (primary) hypertension; K21.9 Gastro-esophageal reflux disease without esophagitis; F41.9 Anxiety disorder, unspecified
CPT/HCPCS: 71046; 80053; 82150; 83690; 83880; 84484; 85025; 93005; 99283

== ENCOUNTER → 2020-02-09 11:45 | Outpatient (CLI) | payer BC, SELFPAY ==
[2020-02-09 15:25] LABS: Coronavirus 19 IgG Antibody Negative (Negative); Coronavirus 19 IgM Antibody Negative (Negative)
== END ==
PROVIDERS: PCP Physician Assistant; Visit Provider Physician Assistant
DX: Z03.818 Encounter for observation for suspected exposure to other biological agents ruled out (principal)
CPT/HCPCS: 86328

== ENCOUNTER → 2022-04-13 16:29 | Outpatient (CLI) | payer BC, SELFPAY ==
--- NOTE | 2022-04-13 16:39 | XR_ITS ---
PROCEDURE INFORMATION: Exam: XR Left Knee Exam date and time: 04/13/2022 4:42 PM Age: 56 years old Clinical indication: Pain; Knee; Left; Prior surgery; Surgery date: 6+ months; Additional info: Knee pain TECHNIQUE: Imaging protocol: Radiologic exam of the Left knee. Views: 1 or 2 views. COMPARISON: No relevant prior studies available. FINDINGS: Bones/joints: Previous ACL repair. Tricompartmental joint space narrowing and osteophyte formation. Soft tissues: Prepatellar soft tissue swelling. IMPRESSION: No acute findings.
--- NOTE | 2022-04-13 16:39 | XR_ITS ---
PROCEDURE INFORMATION: Exam: XR Left Ankle Exam date and time: 04/13/2022 4:42 PM Age: 56 years old Clinical indication: Pain; Ankle; Left; Additional info: Left ankle pain TECHNIQUE: Imaging protocol: Radiologic exam of the Left ankle. Views: 1 or 2 views. COMPARISON: No relevant prior studies available. FINDINGS: Bones/joints: No acute fracture or dislocation. Calcaneal spurring. Soft tissues: Normal. IMPRESSION: No acute findings.
== END ==
LOC: RAD 16:31
PROVIDERS: PCP Nurse Practitioner Family; Visit Provider Nurse Practitioner Family
DX: M25.562 Pain in left knee (principal); M25.572 Pain in left ankle and joints of left foot
CPT/HCPCS: 73560; 73600

== ENCOUNTER → 2022-04-13 22:09 | Outpatient (CLI) | payer BC, SELFPAY ==
[2022-04-13 18:03] LABS: MANUAL DIFFERENTIAL MANUAL DIFFERENTIAL (MANUAL DIFF); Microscopic, Urine URINE MICROSCOPIC (MICROSCOPIC)
[2022-04-13 18:21] LABS: Basophils # 0.1 K/mm3 (0-0.2); Basophils % 0.7 % (0.1-2.0); Eosinophils # 0.2 K/mm3 (0.0-0.4); Eosinophils % 2.1 % (0.1-12.0); Hematocrit 51.6 % (42.0-52.0); Hemoglobin 17.2 g/dL (14.1-18.0); Lymphocytes # 2.5 K/mm3 (0.7-4.5); Lymphocytes % 22.7 % (10-50); Mean Corpuscular HGB Conc 33.4 g/dL (31.8-35.4); Mean Corpuscular Hemoglobin 29.8 pg (27.0-31.2); Mean Platelet Volume 8.6 fl (7.4-10.4); Monocytes # 0.7 K/mm3 (0.1-1.0); Monocytes % 6.9 % (1.7-9.3); Neutrophils # 7.3 K/mm3 (1.8-7.8); Neutrophils % 67.7 % (37.0-80.0); Platelet Count 275 K/mm3 (142-424); Red Blood Count 5.79 M/mm3 (4.60-6.20); Red Cell Distribution Width 13.5 % (11.5-17.5); White Blood Count 10.8 K/mm3 (4.8-10.8)
[2022-04-13 19:02] LABS: Eosinophils % 2 % (0-3); Lymphocytes % 24 % (10-50); Monocytes % 9 % (2-9); Neutrophils % 65 % (42-76); Platelet Estimate Normal; RBC Morphology Normal; Total Cells Counted 100
[2022-04-13 19:25] LABS: Erythrocyte Sedimentation Rate 3 mm/hr (0-20)
[2022-04-13 20:29] LABS: Hemoglobin A1C 5.4 % (4.0-6.0)
[2022-04-13 20:59] LABS: Appearance,Urine CLEAR (Clear); Bilirubin,Urine Negative (Negative); Blood, Urine Negative (Negative); Color,Urine YELLOW (Yellow); Glucose,Urine (UA) Negative (Negative); Ketones,Urine TRACE (Negative); Leukocyte Esterase,Urine Negative (Negative); Nitrate,Urine Negative (Negative); PH,Urine 5.5 (5.0-8.5); Protein,Urine Negative (Negative); Specific Gravity, Urine >= 1.030 (1.005-1.030); Urobilinogen,Urine 0.2 EU/dl (0.2)
[2022-04-13 21:35] LABS: Bacteria,Urine 1+ /lpf; Mucus,Urine 1+ /lpf
[2022-04-13 21:55] LABS: Alanine Aminotransferase 31 U/L (12-78); Albumin Level 4.7 g/dl (3.5-5.0); Albumin/Globulin Ratio 1.6 (1.1-1.8); Alkaline Phosphatase 99 U/L (38-126); Anion Gap 13.7 mEq/L (5-15); Aspartate Amino Transferase 33 U/L (17-59); Bilirubin,Total 0.7 mg/dl (0.2-1.3); Blood Urea Nitrogen 29 mg/dl (9-20); Calcium 9.5 mg/dl (8.4-10.2); Carbon Dioxide 28 mmol/L (22.0-30.0); Chloride 103 mmol/L (98-107); Cholesterol 176 mg/dl (140-200); Estimated Glomerular Filt Rate 87 ml/min (>60); GFR (African American) 105 ML/MIN (>60); Glucose 80 mg/dl (74-100); HDL Cholesterol 59 mg/dl (40-60); Potassium 3.7 mmoL/L (3.5-5.1); Sodium 141 mmol/L (136-145); Total Protein,Serum 7.7 g/dl (6.3-8.2); Triglycerides 193 mg/dl (30-150); VLDL Cholesterol 39 mg/dL (0-40)
[2022-04-13 22:06] LABS: C-Reactive Protein 2.1 mg/L (0-4); Direct LDL Cholesterol 49.84 mg/dL (100-129)
[2022-04-13 22:27] LABS: Prostate Specific Ag Screen 4.8 ng/ml (0.0-4.0); Thyroid Stimulating Hormone 1.73 uIU/mL (0.465-4.68)
== END ==
LOC: LAB 04-16 01:22 → LAB.DROPOF 04-21 08:20
PROVIDERS: PCP Nurse Practitioner Family; Visit Provider Nurse Practitioner Family
DX: Z00.00 Encounter for general adult medical examination without abnormal findings (principal); Z12.11 Encounter for screening for malignant neoplasm of colon; Z13.1 Encounter for screening for diabetes mellitus; Z13.220 Encounter for screening for lipoid disorders; E66.9 Obesity, unspecified; Z68.33 Body mass index [BMI] 33.0-33.9, adult; Z12.5 Encounter for screening for malignant neoplasm of prostate; Z76.89 Persons encountering health services in other specified circumstances
CPT/HCPCS: 80053; 80061; 81001; 83036; 84443; 85007; 85014; 85018; 85048; 85049; 85651; 86140; G0103

== ENCOUNTER → 2022-10-11 15:45 | Outpatient (CLI) | payer BC, SELFPAY ==
--- NOTE | 2022-10-11 15:45 | CT_ITS ---
FINAL REPORT TECHNIQUE: Thin section axial CT images of the facial bones and sinuses were obtained without contrast. Coronal reformatted images were also obtained.This study was performed with techniques to keep radiation doses as low as reasonably achievable, (ALARA). Individualized dose reduction techniques using automated exposure control or adjustment of mA and/or kV according to the patient''''s size were employed. CLINICAL HISTORY: sinusitis COMPARISON: None FINDINGS: There is mild mucosal thickening in the right maxillary sinus. There is total opacification of the left maxillary sinus with bony wall thickening consistent with a chronic sinusitis. No fluid levels are identified. There is abnormal soft tissue obstructing the maxillary sinus ostium and erosion of the uncinate process. Mucosal thickening and opacification extends into multiple anterior and middle ethmoid air cells and into the left nasal passage. A right kiarra bullosa is present with mild right septal deviation. The mastoid sinuses are hypoplastic. There is mild mucosal thickening of the left frontal sinus. No fracture or acute bony abnormality is identified. IMPRESSION: Chronic left maxillary sinusitis with total opacification, abnormal soft tissue obstructing the ostium, erosion of the uncinate process, and mucosal thickening/opacification of multiple left ethmoid air cells and the nasal passage. These findings are compatible with a chronic left maxillary sinusitis. There is a right kiarra bullosa and right septal deviation. There is mild mucosal thickening in the right maxillary and left frontal sinuses. Reviewed, Interpreted and Dictated by Po Bentley III, MD Transcribed by Amy Oneill Authenticated and [facility]
== END ==
LOC: RAD 15:45
PROVIDERS: PCP Nurse Practitioner Family; Visit Provider Nurse Practitioner
DX: J32.9 Chronic sinusitis, unspecified (principal)
CPT/HCPCS: 70486

== ENCOUNTER → 2022-11-05 15:44 | Outpatient (CLI) | payer BC, SELFPAY ==
[2022-11-05 15:50] LABS: MANUAL DIFFERENTIAL MANUAL DIFFERENTIAL (MANUAL DIFF)
[2022-11-05 16:32] LABS: Basophils % 0.3 % (0.1-2.0); Eosinophils # 0.3 K/mm3 (0.0-0.4); Eosinophils % 2.8 % (0.1-12.0); Hematocrit 51.1 % (42.0-52.0); Hemoglobin 16.6 g/dL (14.1-18.0); Lymphocytes # 2.2 K/mm3 (0.7-4.5); Lymphocytes % 22.1 % (10-50); Mean Corpuscular HGB Conc 32.5 g/dL (31.8-35.4); Mean Corpuscular Hemoglobin 30.2 pg (27.0-31.2); Mean Corpuscular Volume 92.9 fl (80-94); Mean Platelet Volume 8.2 fl (7.4-10.4); Monocytes # 0.7 K/mm3 (0.1-1.0); Monocytes % 6.9 % (1.7-9.3); Neutrophils # 6.6 K/mm3 (1.8-7.8); Neutrophils % 67.8 % (37.0-80.0); Platelet Count 260 K/mm3 (142-424); Red Cell Distribution Width 13.5 % (11.5-17.5); White Blood Count 9.7 K/mm3 (4.8-10.8)
[2022-11-05 17:02] LABS: Lymphocytes % 22 % (10-50); Monocytes % 6 % (2-9); Neutrophils % 72 % (42-76); Platelet Estimate Normal; RBC Morphology Normal; Total Cells Counted 100
[2022-11-05 17:43] LABS: Alanine Aminotransferase 27 U/L (12-78); Albumin Level 4.3 g/dl (3.5-5.0); Albumin/Globulin Ratio 1.4 (1.1-1.8); Alkaline Phosphatase 107 U/L (38-126); Anion Gap 15.8 mEq/L (5-15); Aspartate Amino Transferase 32 U/L (17-59); Bilirubin,Total 0.3 mg/dl (0.2-1.3); Blood Urea Nitrogen 31 mg/dl (9-20); Calcium 9.4 mg/dl (8.4-10.2); Carbon Dioxide 25 mmol/L (22.0-30.0); Chloride 106 mmol/L (98-107); Estimated Glomerular Filt Rate 87 ml/min (>60); GFR (African American) 105 ML/MIN (>60); Glucose 82 mg/dl (74-100); Potassium 3.8 mmoL/L (3.5-5.1); Sodium 143 mmol/L (136-145); Total Protein,Serum 7.3 g/dl (6.3-8.2)
== END ==
PROVIDERS: PCP Nurse Practitioner Family; Visit Provider Nurse Practitioner
DX: J32.9 Chronic sinusitis, unspecified (principal); J34.89 Other specified disorders of nose and nasal sinuses
CPT/HCPCS: 36415; 80053; 85007; 85014; 85018; 85048; 85049

== ENCOUNTER 2022-11-15 10:21 | Day surgery (SDC) | payer BC, SELFPAY ==
[2022-11-09 09:51] VITALS: BMI 30.7
[2022-11-15] VITALS (10 sets, daily range): BP systolic 151–165; BP diastolic 74–98; PULSE 54–65; RESP 14–18; TEMP 36.2–36.8; O2SAT 92–98
--- NOTE | 2022-11-15 13:02 | ECG_ITS ---
APPROVED REPORT Exam: Resting ECG HR:54 bpm ECG Measurements Heart Rate 54 AXES WY 183 P -3 QRSd 110 QRS 9 QT 422 T 22 QTc 409 Conclusion SINUS BRADYCARDIA WITH SINUS ARRHYTHMIA BORDERLINE ECG UNCONFIRMED REPORT Electronically signed by : Francisco Javier Zhou MD 11/16/2022 17:16:53
--- NOTE | 2022-11-15 13:08 | EXP.ANES.CKL ---
[facility] Disclaimer: The information contained in this section may have been updated after the patient was seen, as this information can be updated by other users. Medical History Alcohol use Anxiety Back contusion Back strain BMI 32.0-32.9,adult BMI 33.0-33.9,adult BMI 34.0-34.9,adult Bronchitis Radha bullosa Deviated nasal septum Dyspnea HTN (hypertension) Immunization due Left ACL tear repaired Sinusitis Viral syndrome Weight gain Surgical History H/O knee surgery History of tonsillectomy Family History Other Family history of hypertension Family history of myocardial infarction Social History (Updated 11/15/22 @ 10:56 by Hilda Santamaria RN) Smoking Status: Never smoker second hand exposure: No alcohol intake: current substance use type: marijuana current occupational status: employed Travel in the last 8 weeks: [place] the [place] household members: spouse housing: house 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 caffeine: Yes [facility] Anesthesia Checklist Patient Identification Patient Identification: Verbal (Name & ) Structural Data Admitted From: Home Planned Operative Procedure/s: fess Consent for Planned Operative Procedure(s) Verified: Yes NPO Status Verified Time NPO: 00:00 Additional verifications Anesthesia Reactions: No Hx Blood Transfusions: No Blood Transfusion Reaction: No Airway Assessment Mallampati Score:: Class II C-Spine Mobility Assessed: Yes TMJ Mobility Assessed: Yes Dentition: Good Dentition Neurological Assessment Level of Consciousness: Awake, Alert and Appropriate Anesthesia Plan Anesthesia Risk discussed: Yes Anesthesia Plan: Verified ASA Class: II Anesthesia Type: General
--- NOTE | 2022-11-15 13:24 | EXP.ANES.CKL ---
[facility] Disclaimer: The information contained in this section may have been updated after the patient was seen, as this information can be updated by other users. Medical History Alcohol use Anxiety Back contusion Back strain BMI 32.0-32.9,adult BMI 33.0-33.9,adult BMI 34.0-34.9,adult Bronchitis Radha bullosa Deviated nasal septum Dyspnea HTN (hypertension) Immunization due Left ACL tear repaired Sinusitis Viral syndrome Weight gain Surgical History H/O knee surgery History of tonsillectomy Family History Other Family history of hypertension Family history of myocardial infarction Social History (Updated 11/15/22 @ 10:56 by Hilda Santamaria RN) Smoking Status: Never smoker second hand exposure: No alcohol intake: current substance use type: marijuana current occupational status: employed Travel in the last 8 weeks: [place] the [place] household members: spouse housing: house 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 caffeine: Yes [facility] Anesthesia Checklist Patient Identification Patient Identification: Verbal (Name & ) Structural Data Admitted From: Home Planned Operative Procedure/s: excision tongue mass Consent for Planned Operative Procedure(s) Verified: Yes NPO Status Verified Time NPO: 00:00 Additional verifications Anesthesia Reactions: No Hx Blood Transfusions: No Blood Transfusion Reaction: No Airway Assessment Mallampati Score:: Class I C-Spine Mobility Assessed: Yes TMJ Mobility Assessed: Yes Dentition: Good Dentition Neurological Assessment Level of Consciousness: Awake, Alert and Appropriate Anesthesia Plan Anesthesia Risk discussed: Yes Anesthesia Plan: Verified ASA Class: II Anesthesia Type: General
--- NOTE | 2022-11-15 13:51 | P.OP_ITS ---
Date of procedure: 11/15/22 Pre-op Diagnosis:: Chronic sinusitis left greater than right Bilateral middle turbinate kiarra bullosa Post-op Diagnosis:: Same Procedure performed:: 1. Bilateral endoscopic middle meatal antrostomy with tissue removal 2. Left endoscopic ethmoidectomy?total 3. Left endoscopic reduction of kiarra bullosa of middle turbinate Surgeon:: Toni Dumont III, MD [employer] OPERATOR:: Roberto Carlos Lopez Anesthesia: GETA Estimated blood loss (mL): 75 Operative findings:: Extensive purulent discharge from the left ethmoid and maxillary sinuses along with extensive polypoid debris Operative note:: The patient was brought to the operating room placed under general endotracheal anesthesia. He was then placed in the lounge chair position topical Afrin and lidocaine was applied on cottonoids and placed bilaterally. After adequate time was allowed for vasoconstriction and these were removed further injection of 1% lidocaine with epinephrine was carried out along the lateral nasal torres bilaterally. I began endoscopic dissection on the right side. The uncinate process on the right was removed I used the microdebrider to take this down more thoroughly. Once this was done I then opened into the middle meatus this opening was opened widely using a backbiting down-biting instrument. Polypoid tissue was removed from the medial portion of the antrostomy. I then placed a nova pack on the right and infiltrated this with saline solution. Mupirocin ointment is then placed as a topical dressing as well. I removed the cottonoids from the left side of the nose. Further injection was carried out along the posterior nasal wall. I then used the microdebrider to remove the extensive polypoid tissue in the middle meatus and the anterior ethmoid sinuses. I extended the dissection posteriorly into the ethmoid sinuses until they were totally debrided, the lateral portion of the middle turbinate was removed as as it was polypoid in nature. Middle meatus was then opened widely there was some purulent discharge aspirated and this was sent for culture (bacterial and fungal). Recent polypoid tissue from the floor the maxillary sinus on the left this was sent for pathologic valuation. Once the opening was opened widely into the sinus. The procedure was terminated. I then placed a nova pack on the right followed by mupirocin ointment. I also used some Surgicel on the left side within the ethmoid sinus. The patient stomach contents were aspirated clear. He was then awakened in the operating room taken recovery room in good condition. Condition: stable Disposition: PACU Complications:: None
--- NOTE | 2022-11-15 13:58 | P.PNANES_ITS ---
[facility] Anesthesia Record Part I Anesthesia Record I Intake, IV Amount: 700 Hydration: Adequate Estimated blood loss (mL): 5 Urine output (mL): 0 Blood Products used (#): none Blood Pressure: 165/92 SaO2: 94 Pulse Rate: 63 Airway Patency: Patent Respiratory Rate: 16 Temperature: 97.2 F Patient is:: Drowsy and Stable Stable to PACU at:: 13:50
--- NOTE | 2022-11-15 16:29 | EXP.ANES.II ---
[facility] Anesthesia Record Part II Anesthesia Record Part II Discharge Time: 14:20 Destination: Surgical Day Care (OP Surgery) PACU nurse assessment reviewed?: Yes Patient Condition:: Good Anesthesia Complications:: None Swallowing reflex intact?: Yes Airway Patency: Patent Cyanosis?: No Blood Pressure: 155/79 SaO2: 92 Respiratory Rate: 16 Pulse Rate: 62 Temperature: 98 F Mental Status: Alert & Oriented Pain level:: 2 Nausea and/or vomitting:: None Intake, IV Amount: 0 Hydration: Adequate
== END 2022-11-15 15:00 | disposition home or self-care (01) ==
PROVIDERS: PCP Nurse Practitioner Family; Visit Provider Otolaryngology
PROC: (CPT 31255; principal; 2022-11-15 12:00)
DX: J32.9 Chronic sinusitis, unspecified (principal); J34.89 Other specified disorders of nose and nasal sinuses
CPT/HCPCS: 31255; 31267; 31240; 87102; 87206; 93005; 96374; J2405

== ENCOUNTER 2023-07-04 11:28 | Emergency (ER) | payer OTHER, SELFPAY ==
[2023-07-04] VITALS (7 sets, daily range): BP systolic 153–194; BP diastolic 84–103; PULSE 60–70; RESP 16–27; TEMP 36.8; O2SAT 95–97; BMI 32.5
--- NOTE | 2023-07-04 11:29 | ECG_ITS ---
APPROVED REPORT Exam: Resting ECG HR:69 bpm ECG Measurements Heart Rate 69 AXES MA 178 P 17 QRSd 93 QRS 20 QT 363 T 35 QTc 382 Conclusion SINUS RHYTHM NORMAL ECG Electronically signed by : DERIC CHUNG, 07/04/2023 15:28:22
--- NOTE | 2023-07-04 11:32 | PC.NURSE ---
Dr. Luo at [facility] for pt eval
--- NOTE | 2023-07-04 11:35 | XR_ITS ---
FINAL REPORT CLINICAL HISTORY: chest pain COMPARISON: 12/31/2019 FINDINGS: No acute pulmonary opacity is present. There is no evidence of effusion or pneumothorax. Mediastinum is unremarkable. Heart size is normal. IMPRESSION: No acute abnormality. No change from prior. Reviewed, Interpreted and Dictated by Estefany Saucedo MD Transcribed by Antonia Guadalupe Authenticated and [facility]
--- NOTE | 2023-07-04 11:36 | ED_ITS ---
Discharge Plan Disposition Patient Disposition: Home, Self-Care Chief Complaint: Chest Pain Prescriptions Prescriptions: No Action losartan-hydrochlorothiazide 100-25 mg tablet 1 tab PO DAILY metoprolol succinate 25 mg tablet extended release 24 hr 25 mg PO DAILY tetracycline 500 mg capsule 500 mg PO DAILY Rx Instructions: Open capsule and uses with nasal flush naproxen 500 mg tablet 500 mg PO DAILY Qty: 90 0RF Hold Instructions: Resume on 11/18/22. nitroglycerin 0.4 MG tablet, sublingual 0.4 mg SL Q5MINP PRN (Reason: Chest Pain) 30 Days Qty: 30 0RF aspirin 81 mg Capsule 81 mg PO DAILY Hold Instructions: Resume on 11/18/22. Referrals Follow up/Referrals: Provider,MD Kathleen [Referring] - See instructions Robson Rock MD [Staff Physician] - See instructions Activity Restrictions/Add. Instructions Additional Instructions/Restrictions: At this time it was felt you are safe to be discharged home. If new or worsening symptoms please do not hesitate to return the emergency department. Please call and schedule an appointment with cardiology as soon as you are able. Please restart your home blood pressure medication. Clinical Impressions Clinical Impression: Chest pain Discharge ED Provider: Barry Luo HPI General Chief Complaint: Chest Pain Stated Complaint: Chest pain Time Seen by Provider: 07/04/23 11:31 History of Present Illness HPI narrative: Patient is a 58-year-old male with past medical history of hypertension who presents emergency department for evaluation of chest pain and elevated blood pressure. 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 Patient's blood pressure was taken and systolic was greater than 240 upon EMS arrival. Patient was given aspirin, nitroglycerin. Patient has no ongoing chest pain upon arrival. When chest pain was happening it does not radiate to his back, he has no abdominal pain, no other acute complaints at this time. With respect to his blood pressure medication patient was prescribed losartan which he has self discontinued approximately 2 months ago. Related Data Home Medications Medication Instructions Recorded Confirmed aspirin 81 mg capsule [address] [facility] 11/15/22 04/11/23 losartan 100 1 tab PO DAILY 03/31/23 04/11/23 mg-hydrochlorothiazide 25 mg tablet metoprolol succinate 25 mg 25 mg PO DAILY 03/31/23 04/11/23 tablet,extended release 24 hr tetracycline 500 mg capsule 500 mg PO DAILY 03/31/23 04/11/23 Previous Rx's Medication Instructions Recorded nitroglycerin 0.4 mg sublingual 0.4 mg sublingual Q5MINP PRN Chest 01/08/19 tablet Pain 30 days ##30 naproxen 500 mg tablet 500 mg PO DAILY pain #90 tabs 04/29/23 Allergies Allergy/AdvReac Type Severity Reaction Status Date / Time No Known Allergies Allergy Verified 04/11/23 10:17 [facility] Disclaimer: The information contained in this section may have been updated after the patient was seen, as this information can be updated by other users. Medical History (Updated 07/04/23 @ 15:07 by Barry Luo MD) Chest pain Deviated nasal septum Radha bullosa BMI 34.0-34.9,adult Left ACL tear BMI 33.0-33.9,adult BMI 32.0-32.9,adult HTN (hypertension) Dyspnea Weight gain Anxiety Alcohol use Sinusitis Bronchitis Viral syndrome Immunization due Back strain Back contusion Surgical History Status post nasal septoplasty History of tonsillectomy H/O knee surgery Family History Other Family history of hypertension Family history of myocardial infarction Social History Smoking Status: Never smoker second hand exposure: No alcohol intake: current alcohol intake frequency: 0-2 drinks per day substance use type: marijuana current occupational status: employed Travel in the last 8 weeks: [place] the [place] household members: spouse housing: house 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 caffeine: Yes ROS Obtained: Yes Systems reviewed as appropriate & no additional complaints except as documented Physical Exam General General appearance: alert and in no apparent distress Head Head exam: atraumatic and normocephalic Eye Eye exam: Present PERRL ENT ENT exam: Present mucous membranes moist Neck Neck exam: Present normal inspection Chest Chest inspection: Present normal inspection and symmetric chest wall rise Respiratory Respiratory exam: Present normal lung sounds bilaterally; Absent respiratory distress Cardiovascular Cardiovascular exam: Present regular rate and normal rhythm Abdominal Exam Abdominal exam: Present soft; Absent tenderness Extremities Exam Extremities exam: Present normal inspection Neurological Exam Neurological exam: Present alert Psychiatric Psychiatric exam: Present normal affect Skin Skin exam: Present warm and dry HEART Score HEART Score HEART Score assessment performed?: Yes History (anamnesis): Highly suspicious ECG: Normal Age: 45-65 years Risk factors: 1-2 risk factors Troponin: </= normal limit HEART Score: 4 Critical Care Critical Care Time Critical Care Time: No Medical Decision Making Alejandro Inquiry Pt receiving controlled substance: No Vital Signs Vital Signs: 07/04/23 11:28 07/04/23 12:34 07/04/23 13:00 Temperature 98.3 F Temperature Source Oral Pulse Rate 63 60 Pulse Rate [Radial] 67 Respiratory Rate 18 26 H 27 H Blood Pressure 177/100 H 194/103 H Blood Pressure [Right Arm] 163/94 H Blood Pressure Mean [Right Arm] 117 Blood Pressure Source [Right Arm] Automatic Cuff Blood Pressure Position [Right Arm] Sitting 02 Sat by Pulse Oximetry 96 97 96 Oxygen Delivery Method Room Air Room Air Room Air 07/04/23 14:00 07/04/23 14:30 Temperature Temperature Source Pulse Rate 65 69 Pulse Rate [Radial] Respiratory Rate 19 18 Blood Pressure 155/98 H 153/84 H Blood Pressure [Right Arm] Blood Pressure Mean [Right Arm] Blood Pressure Source [Right Arm] Blood Pressure Position [Right Arm] 02 Sat by Pulse Oximetry 95 95 Oxygen Delivery Method Lab Data Labs: Lab Results 07/04/23 11:14: WBC 10.0, RBC 5.83, Hgb 17.9, Hct 53.6 H, MCV 92.0, MCH 30.6, MCHC 33.3, RDW 14.1, Plt Count 233, MPV 8.5, Neut % (Auto) 67.5, Lymph % (Auto) 22.6, [place] % (Auto) 7.1, Eos % (Auto) 2.1, Baso % (Auto) 0.7, Neut # (Auto) 6.7, Lymph # (Auto) 2.3, [place] # (Auto) 0.7, Eos # (Auto) 0.2, Baso # (Auto) 0.1, Sodium 142, Potassium 3.8, Chloride 108 H, Carbon Dioxide 27, Anion Gap 10.8, B UN 24 H, Creatinine 1.00, Estimated Creat Clear 122, Estimated GFR 76, Est GFR ( Amer) 93, Glucose 94, Calcium 10.3 H, Total Bilirubin 0.7, AST 39, ALT 34, Alkaline Phosphatase 86, Troponin I < 0.01, Total Protein 7.8, Albumin 4.6, Globulin 3.2, Albumin/Globulin Ratio 1.4 07/04/23 14:16: Troponin I < 0.01 07/04/23 11:14 07/04/23 11:14 Response Orders (Tests/Meds): ED MEDICATIONS Discontinued Medications Generic Name Dose Route Start Last Admin Trade Name Freq PRN Reason Stop Dose Admin Acetaminophen 1,000 mg 07/04/23 13:20 07/04/23 13:24 Acetaminophen 1,000mg/100ml Vial IV 07/04/23 13:21 1,000 mg ONCE ONE Administration Hydrochlorothiazide 25 mg 07/04/23 12:45 07/04/23 12:51 Hydrochlorothiazide 25mg Tablet PO 07/04/23 12:46 25 mg ONCE ONE Administration Irbesartan 150 mg 07/04/23 12:45 07/04/23 12:51 Irbesartan 150mg Tab PO 07/04/23 12:46 150 mg ONCE ONE Administration Ketorolac Tromethamine 30 mg 07/04/23 13:20 07/04/23 13:25 Ketorolac 30mg/Ml Vial IV 07/04/23 13:21 30 mg ONCE ONE Administration ORDERS Category Date Time Status Cardiology Consult [Consult to Cardiology] [CONS] Cons 07/04/23 12:39 Active Routine CXR --portable [XR chest portable] Stat Exams 07/04/23 11:35 Completed CBC w/Auto Diff [Complete Blood Count Auto Diff] Stat Lab 07/04/23 11:14 Completed CMP [Comprehensive Metabolic Panel] Stat Lab 07/04/23 11:14 Completed Trop I [Troponin I] Stat Lab 07/04/23 11:14 Completed Troponin I Q3H Lab 07/04/23 14:16 Completed Troponin I Q3H Lab 07/04/23 17:45 Ordered CA echo doppler complete Stat Y 07/04/23 14:18 Completed ECG Data Tracing #1: ECG Narrative: Independently interpreted by me, rate is 69, rhythm is regular, axis is normal, no ST elevation in anatomical contiguous leads, QTc 382. MDM Narrative Medical Decision Narrative: In summary patient is a 58-year-old male with past medical history described above who presents emergency department for evaluation of transient chest pain and hypertension. Patient is hemodynamically stable nontoxic-appearing upon arrival, afebrile, systolic in the 160s. Patient has no ongoing chest pain. Differential diagnosis includes cardiac chest pain, noncardiac chest pain, uncontrolled hypertension, among others. Workup will be conducted with hematologic labs, chest x-ray, EKG, serial troponins. Aspirin and nitroglycerin have been administered prior to arrival and patient has no ongoing chest pain, initial interventions include home dose blood pressure medicines. Initial workup reviewed by me, hematologic labs are nonactionable, initial troponin undetectably low. Chest x-ray informally interpreted by me, no acute lobar opacities or large pneumothorax. Case was discussed with cardiology evaluate the patient and patient is appropriate for outpatient management at this time if serial troponins are nonactionable. The patient was placed in observation status at 1340. Medical necessity for observational status is serial troponins. The patient was provided serial reevaluations while awaiting results. Results of testing during observation show serial troponins are nonactionable. Because of this patient is appropriate for outpatient management at this time we will follow-up with cardiology. Total time in observation 1 hour and 25 minutes.
[2023-07-04 11:41] LABS: Basophils # 0.1 K/mm3 (0-0.2); Basophils % 0.7 % (0.1-2.0); Eosinophils # 0.2 K/mm3 (0.0-0.4); Eosinophils % 2.1 % (0.1-12.0); Hematocrit 53.6 % (42.0-52.0); Hemoglobin 17.9 g/dL (14.1-18.0); Lymphocytes # 2.3 K/mm3 (0.7-4.5); Lymphocytes % 22.6 % (10-50); Mean Corpuscular HGB Conc 33.3 g/dL (31.8-35.4); Mean Corpuscular Hemoglobin 30.6 pg (27.0-31.2); Mean Platelet Volume 8.5 fl (7.4-10.4); Monocytes # 0.7 K/mm3 (0.1-1.0); Monocytes % 7.1 % (1.7-9.3); Neutrophils # 6.7 K/mm3 (1.8-7.8); Neutrophils % 67.5 % (37.0-80.0); Platelet Count 233 K/mm3 (142-424); Red Blood Count 5.83 M/mm3 (4.60-6.20); Red Cell Distribution Width 14.1 % (11.5-17.5)
[2023-07-04 11:54] LABS: Alanine Aminotransferase 34 U/L (12-78); Albumin Level 4.6 g/dl (3.5-5.0); Albumin/Globulin Ratio 1.4 (1.1-1.8); Alkaline Phosphatase 86 U/L (38-126); Anion Gap 10.8 mEq/L (5-15); Aspartate Amino Transferase 39 U/L (17-59); Bilirubin,Total 0.7 mg/dl (0.2-1.3); Blood Urea Nitrogen 24 mg/dl (9-20); Calcium 10.3 mg/dl (8.4-10.2); Carbon Dioxide 27 mmol/L (22.0-30.0); Chloride 108 mmol/L (98-107); Creatinine Clearance Estimated 122 mL/min (50-200); Estimated Glomerular Filt Rate 76 ml/min (>60); GFR (African American) 93 ML/MIN (>60); Globulin 3.2 g/dL (1.3-3.2); Glucose 94 mg/dl (74-100); Potassium 3.8 mmoL/L (3.5-5.1); Sodium 142 mmol/L (136-145); Total Protein,Serum 7.8 g/dl (6.3-8.2)
[2023-07-04 12:11] LABS: Troponin I < 0.01 ng/ml (0.00-0.034)
--- NOTE | 2023-07-04 12:26 | PC.NURSE ---
Lunch tray ordered for pt
--- NOTE | 2023-07-04 12:37 | PC.NURSE ---
Pt provided with lunch tray
--- NOTE | 2023-07-04 12:43 | PC.NURSE ---
Cardiology office notified of pt consult
--- NOTE | 2023-07-04 12:44 | PC.NURSE ---
Dr. Luo speaking with Keyona Hood
[2023-07-04] MEDS: IRBESARTAN 150MG TAB 150 MG PO (12:51)
[2023-07-04] MEDS: hydroCHLOROthiazide 25MG TABLET 25 MG PO (12:51)
--- NOTE | 2023-07-04 13:22 | PC.NURSE ---
Pt ambulatory to bathroom. No other needs voiced at this time.
[2023-07-04] MEDS: ACETAMINOPHEN 1,000MG/100ML VIAL 1000 MG IV (13:24)
[2023-07-04] MEDS: KETOROLAC 30MG/ML VIAL 30 MG IV (13:25)
--- NOTE | 2023-07-04 13:30 | PC.NURSE ---
Keyona Hood at BS for pt consult
--- NOTE | 2023-07-04 14:18 | P.CONCA_ITS ---
History of Present Illness History of Present Illness Consult date: 07/04/23 Chief complaint: chest pain History of present illness: This is a 58-year-old white gentleman presented to the emergency department complaints of chest pain and an elevated blood pressure. The patient states that he was at work working with a [employer] drill when he had sudden onset of chest pain. He describes this as a pressure sensation and something was sitting on his chest. He states that it did not radiate. It was associated with shortness of breath. He denies any nausea, vomiting or diaphoresis. The patient states that he went to the nurses office at his work and his systolic blood pressure was greater than 240 and his diastolic blood pressure was 132. He was given 4 aspirin and 2 sprays of nitroglycerin and he had improvement of the chest pain. The patient states that he has had no chest pain since that time. The patient does report that he stopped taking his losartan/HCTZ approximately 1 month ago because he felt like it was making him gain weight. He has remained on his metoprolol. He also reports last night that he had a very large alcoholic mixed drink which he does not ever do so he thinks this combination caused his blood pressure to elevate. He denies any fever, chills, nausea, vomiting, diarrhea, PND or orthopnea. He denies any shortness of breath or edema. [facility] Disclaimer: The information contained in this section may have been updated after the patient was seen, as this information can be updated by other users. Medical History (Updated 07/04/23 @ 14:22 by Keyona Hood APRN) Chest pain Deviated nasal septum Radha bullosa BMI 34.0-34.9,adult Left ACL tear BMI 33.0-33.9,adult BMI 32.0-32.9,adult HTN (hypertension) Dyspnea Weight gain Anxiety Alcohol use Sinusitis Bronchitis Viral syndrome Immunization due Back strain Back contusion Surgical History Status post nasal septoplasty History of tonsillectomy H/O knee surgery Family History Other Family history of hypertension Family history of myocardial infarction Social History Smoking Status: Never smoker second hand exposure: No alcohol intake: current alcohol intake frequency: 0-2 drinks per day substance use type: marijuana current occupational status: employed Travel in the last 8 weeks: [place] the [place] household members: spouse housing: house 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 caffeine: Yes Review of Systems Review of Systems Review of systems:: pertinent systems reviewed and negative unless documented below Constitutional Constitutional: Reports system reviewed and no additional complaints, except as documented Eyes Eyes: Reports system reviewed and no additional complaints, except as documented ENT Ears, Nose, Mouth, and Throat: Reports system reviewed and no additional complaints, except as documented *Cardiovascular Cardiovascular: Reports system reviewed and no additional complaints, except as documented, Reports chest pain, Reports chest pain at rest, Reports chest pain with activity, Reports dyspnea and Reports dyspnea on exertion *Respiratory Respiratory: Reports system reviewed and no additional complaints, except as documented, Reports dyspnea and Reports dyspnea on exertion *Gastrointestinal Gastrointestinal: Reports system reviewed and no additional complaints, except as documented *Genitourinary Genitourinary: Reports system reviewed and no additional complaints, except as documented *Musculoskeletal Musculoskeletal: Reports system reviewed and no additional complaints, except as documented Integumentary/Breasts Skin/Breast: Reports system reviewed and no additional complaints, except as documented *Neurologic Neurologic: Reports system reviewed and no additional complaints, except as documented Psychiatric Psychiatric: Reports system reviewed and no additional complaints, except as documented Endocrine Endocrine: Reports system reviewed and no additional complaints, except as documented Hematologic/Lymphatic Hematologic/Lymphatic: Reports system reviewed and no additional complaints, except as documented Allergic/Immunologic Allergic/Immunologic: Reports system reviewed and no additional complaints, except as documented Exam Data for Last 24 hours Vital signs and Labs for Last 24 Hours: Temp Pulse Resp BP Pulse Ox O2 Del Method 98.3 F 60 27 H 194/103 H 96 Room Air 07/04/23 11:28 07/04/23 13:00 07/04/23 13:00 07/04/23 13:00 07/04/23 13:00 07/04/23 13:00 Laboratory Results - last 24 hr 07/04/23 11:14: WBC 10.0, RBC 5.83, Hgb 17.9, Hct 53.6 H, MCV 92.0, MCH 30.6, MCHC 33.3, RDW 14.1, Plt Count 233, MPV 8.5, Neut % (Auto) 67.5, Lymph % (Auto) 22.6, [place] % (Auto) 7.1, Eos % (Auto) 2.1, Baso % (Auto) 0.7, Neut # (Auto) 6.7, Lymph # (Auto) 2.3, [place] # (Auto) 0.7, Eos # (Auto) 0.2, Baso # (Auto) 0.1, Sodium 142, Potassium 3.8, Chloride 108 H, Carbon Dioxide 27, Anion Gap 10.8, BUN 24 H, Creatinine 1.00, Estimated Creat Clear 122, Estimated GFR 76, Est GFR ( Amer) 93, Glucose 94, Calcium 10.3 H, Total Bilirubin 0.7, AST 39, ALT 34, Alkaline Phosphatase 86, Troponin I < 0.01, Total Protein 7.8, Albumin 4.6, Globulin 3.2, Albumin/Globulin Ratio 1.4 I & O for Last 24 hours: Intake & Output 07/01/23 07/02/23 07/03/23 07/04/23 23:59 23:59 23:59 23:59 Weight 240 lb Constitutional Constitutional: no acute distress and obese *Routine HEENT Exam Head: Present normocephalic and atraumatic ENT: Present mucous membranes moist *Routine Neck Exam Neck: Present supple, full ROM and normal carotid upstroke; Absent JVD, carotid bruit or lymphadenopathy *Routine Respiratory Exam Respiratory: Present CTA bilaterally, normal respiratory effort, able to speak in complete sentences and symmetric chest movement *Routine Cardiovascular Exam Cardiovascular: Present RRR, Normal S1 and Normal S2; Absent murmur or gallop *Routine Abdominal Exam Abdominal: Present soft and normoactive bowel sounds; Absent tenderness, distended or organomegaly *Routine Extremities Exam Extremities: Present full ROM, pulses intact and normal capillary refill; Absent cyanosis, clubbing or edema *Routine Skin Exam Skin: Present intact and warm; Absent erythema *Routine Neurological Exam Neurological: Present alert, oriented X3 and CN II-XII intact; Absent sensory deficit or motor deficit Routine Psychiatric Exam Psychiatric: Present normal affect Meds Home Medications and Allergies Home Medications Medication Instructions Recorded Confirmed Type nitroglycerin 0.4 mg sublingual 0.4 mg sublingual Q5MINP PRN Chest 01/08/19 04/11/23 Rx tablet Pain 30 days ##30 aspirin 81 mg capsule 81 mg PO DAILY [facility] 11/15/22 04/11/23 History losartan 100 1 tab PO DAILY 03/31/23 04/11/23 History mg-hydrochlorothiazide 25 mg tablet metoprolol succinate 25 mg 25 mg PO DAILY 03/31/23 04/11/23 History tablet,extended release 24 hr tetracycline 500 mg capsule 500 mg PO DAILY 03/31/23 04/11/23 History naproxen 500 mg tablet 500 mg PO DAILY pain #90 tabs 04/29/23 Rx New Prescriptions to Start Prescriptions: Allergies Allergy/AdvReac Type Severity Reaction Status Date / Time No Known Allergies Allergy Verified 04/11/23 10:17 Assessment and Plan *Assessment and plan (1) Chest pain: Status: Acute Qualifiers: Chest pain type: other chest pain Qualified Code(s): R07.89 - Other chest pain Category: Medical Code(s): R07.9 - Chest pain, unspecified (2) Diastolic dysfunction: Status: Chronic Category: Medical Code(s): I51.89 - Other ill-defined heart diseases (3) HTN (hypertension): Status: Chronic Qualifiers: Hypertension type: primary hypertension Qualified Code(s): I10 - Essential (primary) hypertension Category: Medical (4) Obesity: Status: Acute Qualifiers: Obesity type: due to excess calories Obesity classification: adult class 1 (BMI 30 - 34.9) Serious obesity comorbidity presence: without serious comorbidity Body mass index: BMI 32.0-32.9 Qualified Code(s): E66.09 - Other obesity due to excess calories; Z68.32 - Body mass index [BMI] 32.0-32.9, adult Category: Medical Code(s): E66.9 - Obesity, unspecified Plan Plan: 1. The patient presented to the emergency department with complaints of chest pain. The patient did have a malignantly elevated blood pressure with a systolic blood pressure greater than 240 and his diastolic blood pressure of 132. This is most likely the cause of his chest pain. He will be started back on his losartan/HCTZ for better blood pressure control. 2. His initial troponin is negative. Will trend his troponin as long as his troponins are negative he can be discharged from the emergency department with a follow-up in cardiology clinic at the end of this week or the beginning of next week to be set up for an ischemic evaluation. 3. If his troponin does elevate then he will be admitted to the hospital. 4. Will obtain an echocardiogram to evaluate his LV function due to his chest pain. 5. At discharge the patient will need to be sent home on his losartan HCT and metoprolol for better blood pressure control. 6. No further recommendations at this time from a cardiac standpoint. As mentioned above as long as the second troponin is negative the patient can be discharged from the emergency department with quick follow-up in the cardiology clinic at the end of this week or the beginning of next week for an outpatient ischemic evaluation. Thank you for the opportunity to help participate in the care of this patient. All recommendations and orders are per Dr. Rock.
--- NOTE | 2023-07-04 14:18 | CA_ITS ---
APPROVED REPORT EXAM: Comprehensive 2D, Doppler, and color-flow Echocardiogram Thoracic Surgeon: Amanda Duff CRT Ht: 6 ft 0 in Wt: 240lbs BSA: 2.30 BP: 154/93 mmHg Indications: Chest Pain, Hypertension/HDD stopped bp meds 2 months ago 2D Dimensions LA Volume 54.90 mL LA Volume Index 23.87 mL/m2 (M/F) 16-34 M-Mode Dimensions RVDd 2.50 cm (0.9-2.6) LA Diam 3.65 cm (1.9-4.0) LVDd 4.58 cm (3.5-5.7) LVDs 3.04 cm (3.5-5.7) IVSd 2.11 cm (0.6-1.1) PWd 0.72 cm (0.6-1.1) EF (Teich) 62.40% FS 33.60% EDV (Teich) 96.30 mL TAPSE 2.73 (<1.7) ESV (Teich) 36.20 mL LV Diastology E Decel Time 237 (160-240 msec) E/A Ratio 0.54 MED A' 8.10 cm/s LAT A' 11.80 cm/s Aortic Valve AO Peak GR. 6.60 mmHg Mitral Valve MV A Velocity 93.0 (40-130 cm/s) E/A Ratio 0.54 Pulmonary Valve PV Peak Velocity 176.0 (50-150 cm/s) Tricuspid Valve TR P. Velocity 221.00 cm/s RAP Estimate 10.00 mmHg RVSP 29.60 mmHg Left Ventricle The left ventricle is normal size. The left ventricular systolic function is normal. The left ventricular ejection fraction is within the normal range. There is increased LV wall thickness. There is normal LV segmental wall motion. Transmitral Doppler flow pattern suggests impaired LV relaxation. LVEF is 60%. Right Ventricle The right ventricle is normal size. The right ventricular systolic function is normal. Atria The left atrium size is normal. The right atrium size is normal. There is no Doppler evidence of interatrial shunt. Aortic Valve The aortic valve opens well. There is no aortic valvular stenosis. No aortic regurgitation is present. Mitral Valve The mitral valve is normal in structure. No evidence of mitral valve stenosis. There is no mitral valve regurgitation noted. Tricuspid Valve The tricuspid valve leaflets are thin and pliable. Trace tricuspid regurgitation. RVSP is normal. Pulmonic Valve The pulmonary valve is normal in structure. Trace pulmonic regurgitation. Great Vessels The aortic root is normal in size. The ascending aorta is mildly dilated, measuring 3.8 cm in diameter. IVC is normal in size and collapses >50% with inspiration. Pericardium There is no pericardial effusion. Other Information Study Quality: Fair Conclusion Normal biventricular systolic function. No significant valvular stenosis or regurgitation. The ascending aorta is mildly dilated, measuring 3.8 cm in diameter. Electronically signed by : Tamar Rock MD 07/06/2023 23:48:13
[2023-07-04 14:56] LABS: Troponin I < 0.01 ng/ml (0.00-0.034)
--- NOTE | 2023-07-04 15:12 | PC.NURSE ---
pt went to restroom
== END 2023-07-04 15:24 | disposition home or self-care (01) ==
PROVIDERS: Emergency Provider Emergency Medicine; PCP Nurse Practitioner Family
DX: R07.89 Other chest pain (principal); I10 Essential (primary) hypertension
CPT/HCPCS: 71045; 80053; 84484; 85025; 93005; 93306; 96374; 96375; 99285; J0131

== ENCOUNTER 2024-09-03 05:20 | Emergency (ER) | payer OTHER, SELFPAY ==
[2024-09-03] VITALS (10 sets, daily range): BP systolic 133–175; BP diastolic 70–99; PULSE 48–62; RESP 13–20; TEMP 36.7–37.1; O2SAT 94–99; BMI 33.9
--- NOTE | 2024-09-03 05:25 | ECG_ITS ---
APPROVED REPORT Exam: Resting ECG HR:56 bpm ECG Measurements Heart Rate 56 AXES WY 192 P 35 QRSd 90 QRS 66 QT 407 T 39 QTc 397 Conclusion SINUS BRADYCARDIA WITH OCCASIONAL SUPRAVENTRICULAR PREMATURE COMPLEXES No STEMI Electronically signed by : ADRIANA PHILLIP, 09/04/2024 02:26:42
--- NOTE | 2024-09-03 05:29 | XR_ITS ---
PROCEDURE INFORMATION: Exam: XR Chest Exam date and time: 09/03/2024 5:32 AM Age: 59 years old Clinical indication: Cough and shortness of breath; Additional info: Cough SOA TECHNIQUE: Imaging protocol: Radiologic exam of the chest. Views: 2 views. COMPARISON: CR XR CHEST PORTABLE 07/04/2023 11:54 AM FINDINGS: Lungs: No consolidation. Pleural spaces: No pleural effusion. No pneumothorax. Heart/Mediastinum: The heart is upper limits of normal in size. Vasculature: The aorta is slightly tortuous. Bones/joints: There are some degenerative changes of the thoracic spine. IMPRESSION: No evidence of active pulmonary disease.
[2024-09-03 05:42] LABS: Lactate Venous 1.6 mmol/L (0.4-2.0); VBG Base Excess 1.3 mmol/L (-2.4-2.3); VBG HCO3 26.1 mmol/L (23-30); VBG Oxygen Saturation 69.9 % (50-70); VBG PCO2 43.2 mmol/L (35-51); VBG PO2 34.7 mmol/L (28-40); VBG Total CO2 27.4 mmol/L (23-27)
[2024-09-03 05:46] LABS: Basophils % 0.4 % (0.1-2.0); Eosinophils # 0.4 Kmm3 (0.0-0.4); Eosinophils % 4.2 % (0.1-12.0); Hematocrit 48.9 % (42.0-52.0); Hemoglobin 16.7 g/dL (14.1-18.0); Immature Granulocytes # 0.07 10^3uL; Immature Granulocytes % 0.7 %; Lymphocytes # 1.8 K/mm3 (0.7-4.5); Lymphocytes % 18.9 % (10-50); Mean Corpuscular HGB Conc 34.2 g/dL (31.8-35.4); Mean Corpuscular Volume 90.7 fl (80-94); Mean Platelet Volume 10.3 fl (7.4-10.4); Monocytes # 0.8 K/mm3 (0.1-1.0); Monocytes % 8.8 % (1.7-9.3); Neutrophils # 6.3 K/mm3 (1.8-7.8); Nucleated Red Blood Cells # 0 10^3/uL; Nucleated Red Blood Cells % 0 %; Platelet Count 208 K/mm3 (142-424); Red Blood Count 5.39 M/mm3 (4.60-6.20); White Blood Count 9.4 K/mm3 (4.8-10.8)
[2024-09-03 05:59] LABS: Alanine Aminotransferase 32 U/L (12-78); Albumin/Globulin Ratio 1.2 (1.1-1.8); Alkaline Phosphatase 78 U/L (38-126); Anion Gap 9.1 mEq/L (5-15); Aspartate Amino Transferase 38 U/L (17-59); Bilirubin,Total 0.7 mg/dl (0.2-1.3); Blood Urea Nitrogen 21 mg/dl (9-20); Calcium 9.6 mg/dl (8.4-10.2); Carbon Dioxide 30 mmol/L (22.0-30.0); Chloride 99 mmol/L (98-107); Creatinine Clearance Estimated 140 mL/min (50-200); Estimated Glomerular Filt Rate 86 ml/min (>60); GFR (African American) 104 ML/MIN (>60); Globulin 3.3 g/dL (1.3-3.2); Glucose 114 mg/dl (74-100); Potassium 4.1 mmoL/L (3.5-5.1); Sodium 134 mmol/L (136-145); Total Protein,Serum 7.3 g/dl (6.3-8.2)
[2024-09-03 06:03] LABS: D-Dimer < 0.25 ug/mL (0.0-0.5)
--- NOTE | 2024-09-03 06:03 | [facility].EDCP ---
Discharge Plan Disposition Chief Complaint: Shortness of Breath/Dyspnea Prescriptions Prescriptions: No Action azithromycin 250 mg tablet See Rx Instructions PO .COMPLEX Qty: 6 0RF Rx Instructions: For 250 mg dose pack: take 500 mg today (day 1), then 250 mg for 4 days (days 2-5) PO tetracycline 500 mg capsule 500 mg PO DAILY Rx Instructions: Open capsule and uses with nasal flush naproxen 500 mg tablet See Rx Instructions .ROUTE .COMPLEX Qty: 90 1RF Dose Instruction: TAKE ONE TABLET BY MOUTH EVERY DAY FOR pain Rx Instructions: TAKE ONE TABLET BY MOUTH EVERY DAY FOR pain Paxlovid 300 mg (150 mg x 2)-100 mg tablets,dose pack See Rx Instructions PO .COMPLEX Qty: 30 0RF Rx Instructions: take TWO 150 mg tablets of nirmatrelvir with ONE 100 mg tablet of ritonavir twice daily for 5 days PO losartan-hydrochlorothiazide 100-25 mg tablet See Rx Instructions .ROUTE .COMPLEX Qty: 90 1RF Dose Instruction: TAKE ONE TABLET BY MOUTH EVERY DAY FOR hypertension Rx Instructions: TAKE ONE TABLET BY MOUTH EVERY DAY FOR hypertension metoprolol succinate 25 mg tablet extended release 24 hr See Rx Instructions .ROUTE .COMPLEX Qty: 180 1RF Dose Instruction: TAKE ONE TABLET BY MOUTH TWICE DAILY Rx Instructions: TAKE ONE TABLET BY MOUTH TWICE DAILY nitroglycerin 0.4 MG tablet, sublingual 0.4 mg SL Q5MINP PRN (Reason: Chest Pain) 30 Days Qty: 30 0RF aspirin 81 mg Capsule 81 mg PO DAILY Referrals Follow up/Referrals: Tyesha Oliveros APRN [Primary Care Provider, Family Practice] - See instructions Print Language Print Language: [place] Discharge ED Provider: Brent Joaquin HPI <Brent Joaquin MD - Last Filed: 09/03/24 06:48> General Chief Complaint: Shortness of Breath/Dyspnea Stated Complaint: soa, tingling in both legs Time Seen by Provider: 09/03/24 05:28 Mode of Arrival: Ambulatory Source of Information: Patient Description of Symptoms (Recalled from ER Triage Doc. by RN): patient states hes been feeling SOB since about 2am this morning. patient states he has been congested and taking over the counter medication for sinuses for about 2 weeks. Denies any respiratory history or CHF history. History of Present Illness HPI narrative: 59-year-old male presents to the ER with 3 hours of shortness of breath. Patient reports he has been congested with mild cough for the last 2 weeks and believes it is due to seasonal allergies and sinuses. Patient reports he is not able to lay down secondary to shortness of breath. He denies any new swelling in the feet or legs and states he has no history of CHF. No personal history of heart attack. Patient does have a history of hypertension. He is concerned he has pneumonia because he has had productive cough. No chest pain, dizziness, nausea, or diarrhea. Patient has occasional random vomiting which he has had for years and is unchanged at this time. No fevers or chills. No other associated symptoms. Patient has never had symptoms like this in the past. Related Data Home Medications ?Medication ?Instructions ?Recorded ?Confirmed aspirin 81 mg capsule 81 mg PO DAILY [facility] 11/15/22 04/11/23 Held on 11/15/22. Instructions: Resume on 11/18/22. tetracycline 500 mg capsule 500 mg PO DAILY 03/31/23 11/09/23 Previous Rx's ?Medication ?Instructions ?Recorded nitroglycerin 0.4 mg sublingual 0.4 mg sublingual Q5MINP PRN Chest 01/08/19 tablet Pain 30 days ##30 azithromycin 250 mg tablet See Rx Instructions PO .COMPLEX #6 11/09/23 tabs naproxen 500 mg tablet See Rx Instructions .Route 11/09/23 .COMPLEX #90 tabs nirmatrelvir 300 mg (150 mg See Rx Instructions PO .COMPLEX 01/28/24 x2)-ritonavir 100 mg tablet,dose #30 tabs pack (Paxlovid) losartan 100 See Rx Instructions .Route 08/23/24 mg-hydrochlorothiazide 25 mg tablet .COMPLEX #90 tabs metoprolol succinate 25 mg See Rx Instructions .Route 08/23/24 tablet,extended release 24 hr .COMPLEX #180 tabs Allergies Allergy/AdvReac Type Severity Reaction Status Date / Time No Known Allergies Allergy Verified 11/09/23 10:50 [facility] <Brent Joaquin MD - Last Filed: 09/03/24 06:48> [facility] Disclaimer: The information contained in this section may have been updated after the patient was seen, as this information can be updated by other users. Medical History (Updated 01/19/24 @ 07:58 by Tyesha Oliveros APRN) Chest pain Foot pain Chest pain Deviated nasal septum Radha bullosa BMI 34.0-34.9,adult Left ACL tear BMI 33.0-33.9,adult BMI 32.0-32.9,adult HTN (hypertension) Dyspnea Weight gain Anxiety Alcohol use Sinusitis Bronchitis Viral syndrome Immunization due Back strain Back contusion Surgical History Status post nasal septoplasty History of tonsillectomy H/O knee surgery Family History Other Family history of hypertension Family history of myocardial infarction Social History Smoking Status: Never smoker second hand exposure: No alcohol intake: current alcohol intake frequency: 0-2 drinks per day substance use type: marijuana current occupational status: employed Travel in the last 8 weeks?: Inside the [facility] household members: spouse housing: house 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 caffeine: Yes Have you lived/traveled outside [place] in past 30 days?: No Contact w/someone who lives/traveled outside US past 30 days?: No Exposure to someone with infectious disease in past 14 days?: No Do you have a fever (greater than 100.4 F or 38 C)?: No Have you tested positive for COVID-19?: No Exposed to someone with COVID-19 in past 14 days?: No Do you have a sore throat?: No Do you have a cough?: No Do you have any weakness?: No Do you have any diarrhea?: No Are you experiencing any unusual bleeding?: No Do you have any muscle aches/pain?: No Do you have any abdominal pain?: No Are you experiencing loss of taste or smell?: No Other Medical History Have you received the Flu Vaccine for this season: No Have you received the Pneumonia Vaccine: No <Brent Joaquin MD - Last Filed: 09/03/24 06:48> ROS Obtained: Yes Systems reviewed as appropriate & no additional complaints except as documented Per HPI Physical Exam <Brent Joaquin MD - Last Filed: 09/03/24 06:48> General General appearance: alert and in no apparent distress Head Head exam: atraumatic and normocephalic Eye Eye exam: Present PERRL and EOMI ENT ENT exam: Present mucous membranes moist Neck Neck exam: Present normal inspection and full ROM Chest Chest inspection: Present symmetric chest wall rise Respiratory Respiratory exam: Present normal lung sounds bilaterally and other (Saturating 97 to 98% on room air); Absent respiratory distress, wheezes or stridor Cardiovascular Cardiovascular exam: Present regular rate and normal rhythm Abdominal Exam Abdominal exam: Present soft; Absent distention or tenderness Extremities Exam Extremities exam: Present full ROM; Absent edema Neurological Exam Neurological exam: Present alert and oriented X3; Absent motor sensory deficit Psychiatric Psychiatric exam: Present normal affect and normal mood Skin Skin exam: Present warm and dry HEART Score <Brent Joaquin MD - Last Filed: 09/03/24 06:48> HEART Score HEART Score assessment performed?: Yes History (anamnesis): Slightly suspicious ECG: Non-specific disturbance Age: 45-65 years Risk factors: 1-2 risk factors Troponin: </= normal limit HEART Score: 3 <Barry Luo MD - Last Filed: 09/03/24 09:16> HEART Score HEART Score: 3 Critical Care <Brent Joaquin MD - Last Filed: 09/03/24 06:48> Critical Care Time Critical Care Time: No Medical Decision Making <Brent Joaquin MD - Last Filed: 09/03/24 06:48> Medical Records Medical records reviewed: Yes I reviewed the patient's medical records. Alejandro Inquiry Pt receiving controlled substance: No Vital Signs Vital Signs: 09/03/24 05:26 09/03/24 05:31 09/03/24 06:39 Temperature 98.7 F Temperature Source Oral Pulse Rate 62 59 L Pulse Rate [Left] 62 Respiratory Rate 20 Blood Pressure 153/80 H 154/81 H Blood Pressure [Right Arm] 175/98 H Blood Pressure Mean Blood Pressure Mean [Right Arm] 123 Blood Pressure Source [Right Arm] Automatic Cuff Blood Pressure Position [Right Arm] Sitting 02 Sat by Pulse Oximetry 98 96 95 Oxygen Delivery Method Room Air 09/03/24 07:00 09/03/24 07:16 09/03/24 07:30 Temperature Temperature Source Pulse Rate 51 L 57 L 48 L Pulse Rate [Left] Respiratory Rate 18 18 Blood Pressure 152/80 H 160/83 H 158/99 H Blood Pressure [Right Arm] Blood Pressure Mean 100 94 Blood Pressure Mean [Right Arm] Blood Pressure Source [Right Arm] Blood Pressure Position [Right Arm] 02 Sat by Pulse Oximetry 98 97 97 Oxygen Delivery Method 09/03/24 08:00 09/03/24 08:16 09/03/24 08:30 Temperature Temperature Source Pulse Rate 55 L 62 59 L Pulse Rate [Left] Respiratory Rate Blood Pressure 168/77 H 133/84 148/70 H Blood Pressure [Right Arm] Blood Pressure Mean Blood Pressure Mean [Right Arm] Blood Pressure Source [Right Arm] Blood Pressure Position [Right Arm] 02 Sat by Pulse Oximetry 96 94 L 95 Oxygen Delivery Method Lab Data Labs: Lab Results 09/03/24 05:29: VBG pH 7.40, VBG pCO2 43.2, VBG pO2 34.7, VBG HCO3 26.1, VBG Total CO2 27.4 H, VBG O2 Saturation 69.9, VBG Base Excess 1.3, VBG Lactic Acid 1.6 09/03/24 05:35: WBC 9.4, RBC 5.39, Hgb 16.7, Hct 48.9, MCV 90.7, MCH 31.0, MCHC 34.2, RDW 13.0, Plt Count 208, MPV 10.3, Neut % (Auto) 67.0, Lymph % (Auto) 18.9, [place] % (Auto) 8.8, Eos % (Auto) 4.2, Baso % (Auto) 0.4, Neut # (Auto) 6.3, Lymph # (Auto) 1.8, [place] # (Auto) 0.8, Eos # (Auto) 0.4, Baso # (Auto) 0.0, D-Dimer < 0.25, Sodium 134 L, Potassium 4.1, Chloride 99, Carbon Dioxide 30, Anion Gap 9.1, BUN 21 H, Creatinine 0.90, Estimated Creat Clear 140, Estimated GFR 86, Est GFR ( Amer) 104, Glucose 114 H, Calcium 9.6, Total Bilirubin 0.7, AST 38, ALT 32, Alkaline Phosphatase 78, Troponin I < 0.01, NT-Pro-B Natriuret Pep 35.6, Total Protein 7.3, Albumin 4.0, Globulin 3.3 H, Albumin/Globulin Ratio 1.2 09/03/24 08:18: Troponin I < 0.01 09/03/24 05:35 09/03/24 05:35 Response Orders (Tests/Meds): ORDERS Category Date Time Status CXR 2 view (NOT portable) [XR chest 2V] Stat Exams 09/03/24 05:29 Completed BNP [NT Pro Brain Natriuretic Pep.] Stat Lab 09/03/24 05:35 Completed CBC w/Auto Diff [Complete Blood Count Auto Diff] Stat Lab 09/03/24 05:35 Completed CMP [Comprehensive Metabolic Panel] Stat Lab 09/03/24 05:35 Completed D-Dimer Stat Lab 09/03/24 05:35 Completed Trop I [Troponin I] Stat Lab 09/03/24 05:35 Completed Troponin I Q3H Lab 09/03/24 08:18 Completed Troponin I Q3H Lab 09/03/24 11:30 Ordered VBG [Venous Blood Gas] Stat RT 09/03/24 05:29 Completed ECG Request Stat Y 09/03/24 05:29 Ordered MDM Narrative Medical Decision Narrative: In summary, this 59-year-old male with comorbidities described in the HPI which may not be at goal therapy presents to the emergency department today with shortness of breath. On initial evaluation patient is hemodynamically stable, afebrile, saturating 98% on room air with good air movement throughout and no adventitious sounds, no peripheral edema, reassuring exam. Differential diagnosis includes but is not limited to COPD, CHF, pneumonia, ACS, PE, pneumothorax, seasonal allergies, among others. Patient had briefly reported tingling sensation in the fronts of both legs but this has been ongoing recently with no new changes, he has no neurologic deficits or injuries. No concern for stroke. Since patient has mild bilateral watery eyes as well, I have highest suspicion for seasonal allergies in exacerbation since he and family report he pushed mowed the lawn yesterday.. Based on these concerns, I ordered serum labs, cardiac workup, chest x-ray, D-dimer. ECG personally interpreted demonstrates sinus bradycardia, rate 56, occasional PAC, normal axis, normal MN and QTc, no STEMI. Labs personally reviewed demonstrate normal CBC, VBG with normal pH at 7.40, normal pCO2, normal PO2, normal lactic on VBG. CMP with trace prerenal azotemia but patient is tolerating oral intake so no IV fluids will be administered at this time, otherwise unremarkable CMP. Initial troponin undetectably low less than 0.01. D-dimer undetectable less than 0.25, PE excluded by years criteria. BNP 35.6, further reassurance against CHF exacerbation, fluid overload. XR personally interpreted demonstrates no acute intrathoracic abnormality, no evidence of pneumonia or pneumothorax, see radiology read for final interpretation. Patient was placed into ED observation at 0615 for continued monitoring, serial troponins. This is to rule out evolving PR and preclude unnecessary admission. 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 Patient ambulated around the ER with oxygen saturations maintaining above 93% on room air. Patient handed off to Dr. Luo in stable condition pending repeat troponin and reassessment. Total time in ED observation: [] <Barry Luo MD - Last Filed: 09/03/24 09:16> Vital Signs Vital Signs: 09/03/24 05:26 09/03/24 05:31 09/03/24 06:39 Temperature 98.7 F Temperature Source Oral Pulse Rate 62 59 L Pulse Rate [Left] 62 Respiratory Rate 20 Blood Pressure 153/80 H 154/81 H Blood Pressure [Right Arm] 175/98 H Blood Pressure Mean Blood Pressure Mean [Right Arm] 123 Blood Pressure Source [Right Arm] Automatic Cuff Blood Pressure Position [Right Arm] Sitting 02 Sat by Pulse Oximetry 98 96 95 Oxygen Delivery Method Room Air 09/03/24 07:00 09/03/24 07:16 09/03/24 07:30 Temperature Temperature Source Pulse Rate 51 L 57 L 48 L Pulse Rate [Left] Respiratory Rate 18 18 Blood Pressure 152/80 H 160/83 H 158/99 H Blood Pressure [Right Arm] Blood Pressure Mean 100 94 Blood Pressure Mean [Right Arm] Blood Pressure Source [Right Arm] Blood Pressure Position [Right Arm] 02 Sat by Pulse Oximetry 98 97 97 Oxygen Delivery Method 09/03/24 08:00 09/03/24 08:16 09/03/24 08:30 Temperature Temperature Source Pulse Rate 55 L 62 59 L Pulse Rate [Left] Respiratory Rate Blood Pressure 168/77 H 133/84 148/70 H Blood Pressure [Right Arm] Blood Pressure Mean Blood Pressure Mean [Right Arm] Blood Pressure Source [Right Arm] Blood Pressure Position [Right Arm] 02 Sat by Pulse Oximetry 96 94 L 95 Oxygen Delivery Method Lab Data Labs: Lab Results 09/03/24 05:29: VBG pH 7.40, VBG pCO2 43.2, VBG pO2 34.7, VBG HCO3 26.1, VBG Total CO2 27.4 H, VBG O2 Saturation 69.9, VBG Base Excess 1.3, VBG Lactic Acid 1.6 09/03/24 05:35: WBC 9.4, RBC 5.39, Hgb 16.7, Hct 48.9, MCV 90.7, MCH 31.0, MCHC 34.2, RDW 13.0, Plt Count 208, MPV 10.3, Neut % (Auto) 67.0, Lymph % (Auto) 18.9, [place] % (Auto) 8.8, Eos % (Auto) 4.2, Baso % (Auto) 0.4, Neut # (Auto) 6.3, Lymph # (Auto) 1.8, [place] # (Auto) 0.8, Eos # (Auto) 0.4, Baso # (Auto) 0.0, D-Dimer < 0.25, Sodium 134 L, Potassium 4.1, Chloride 99, Carbon Dioxide 30, Anion Gap 9.1, BUN 21 H, Creatinine 0.90, Estimated Creat Clear 140, Estimated GFR 86, Est GFR ( Amer) 104, Glucose 114 H, Calcium 9.6, Total Bilirubin 0.7, AST 38, ALT 32, Alkaline Phosphatase 78, Troponin I < 0.01, NT-Pro-B Natriuret Pep 35.6, Total Protein 7.3, Albumin 4.0, Globulin 3.3 H, Albumin/Globulin Ratio 1.2 09/03/24 08:18: Troponin I < 0.01 Response Orders (Tests/Meds): ORDERS Category Date Time Status CXR 2 view (NOT portable) [XR chest 2V] Stat Exams 09/03/24 05:29 Completed BNP [NT Pro Brain Natriuretic Pep.] Stat Lab 09/03/24 05:35 Completed CBC w/Auto Diff [Complete Blood Count Auto Diff] Stat Lab 09/03/24 05:35 Completed CMP [Comprehensive Metabolic Panel] Stat Lab 09/03/24 05:35 Completed D-Dimer Stat Lab 09/03/24 05:35 Completed Trop I [Troponin I] Stat Lab 09/03/24 05:35 Completed Troponin I Q3H Lab 06/30/25 08:18 Completed Troponin I Q3H Lab 09/03/24 11:30 Ordered VBG [Venous Blood Gas] Stat RT 09/03/24 05:29 Completed ECG Request Stat Y 09/03/24 05:29 Ordered MDM Narrative Medical Decision Narrative: In summary, this 59-year-old male with comorbidities described in the HPI which may not be at goal therapy presents to the emergency department today with shortness of breath. On initial evaluation patient is hemodynamically stable, afebrile, saturating 98% on room air with good air movement throughout and no adventitious sounds, no peripheral edema, reassuring exam. Differential diagnosis includes but is not limited to COPD, CHF, pneumonia, ACS, PE, pneumothorax, seasonal allergies, among others. Patient had briefly reported tingling sensation in the fronts of both legs but this has been ongoing recently with no new changes, he has no neurologic deficits or injuries. No concern for stroke. Since patient has mild bilateral watery eyes as well, I have highest suspicion for seasonal allergies in exacerbation since he and family report he pushed mowed the lawn yesterday.. Based on these concerns, I ordered serum labs, cardiac workup, chest x-ray, D-dimer. ECG personally interpreted demonstrates sinus bradycardia, rate 56, occasional PAC, normal axis, normal MN and QTc, no STEMI. Labs personally reviewed demonstrate normal CBC, VBG with normal pH at 7.40, normal pCO2, normal PO2, normal lactic on VBG. CMP with trace prerenal azotemia but patient is tolerating oral intake so no IV fluids will be administered at this time, otherwise unremarkable CMP. Initial troponin undetectably low less than 0.01. D-dimer undetectable less than 0.25, PE excluded by years criteria. BNP 35.6, further reassurance against CHF exacerbation, fluid overload. XR personally interpreted demonstrates no acute intrathoracic abnormality, no evidence of pneumonia or pneumothorax, see radiology read for final interpretation. Patient was placed into ED observation at 0615 for continued monitoring, serial troponins. This is to rule out evolving PR and preclude unnecessary admission. 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 Patient ambulated around the ER with oxygen saturations maintaining above 93% on room air. Patient handed off to Dr. Luo in stable condition pending repeat troponin and reassessment. Barry Luo: Upon assumption of care patient is hemodynamically stable. Serial troponins undetectable. Upon repeat evaluation patient was well-appearing and had large resolution of his symptoms. He is concerned that he may have had a mild allergic reaction in setting of the arthropod bite over his right shoulder. He has no wheezing no evidence of anaphylaxis however may be having a mild dyspneic reaction in the setting of arthropod bite. Given this is reasonable to discharge with a short course of steroids and patient will follow-up on an outpatient basis with Dr. Bush for continued evaluation for other causes of dyspnea. Total time in ED observation: 3 hours
[2024-09-03 06:12] LABS: NT Pro Brain Natriuretic Pep. 35.6 pg/mL (0-125)
[2024-09-03 06:13] LABS: Troponin I < 0.01 ng/ml (0.00-0.034)
--- NOTE | 2024-09-03 06:35 | PC.NURSE ---
Walking O2 performed with pt, standing from bed to feet pt was at 99% about a quarter of the way around ER dropped to 97% by the time we got back to his room he was at 93-94%
[2024-09-03 08:53] LABS: Troponin I < 0.01 ng/ml (0.00-0.034)
== END 2024-09-03 09:30 | disposition home or self-care (01) ==
PROVIDERS: Emergency Provider Emergency Medicine; PCP Nurse Practitioner Family
DX: R06.02 Shortness of breath (principal); R00.1 Bradycardia, unspecified; S40.261A Insect bite (nonvenomous) of right shoulder, initial encounter; I10 Essential (primary) hypertension; W57.XXXA Bitten or stung by nonvenomous insect and other nonvenomous arthropods, initial encounter
CPT/HCPCS: 71046; 80053; 82803; 83880; 84484; 85025; 85378; 93005; 99284